=== PATIENT | female | born 1970 | race Caucasian/White ===

== ENCOUNTER 2018-03-25 11:13 | Emergency (ER) | payer OTHER ==
[~2018-03-25] VITALS: Ht 170.2 cm; Wt 155.1 kg
[~2018-03-25 11:13] MED LIST: ABAC300; ACEBUTCAFT PO; ALBIPROI INH; ALBU.083IS IH; ALBU3IS INH; ALBU90I INH; ALBU90OI; ALBU90OI INH; ALBU90OI6 INH; ALPR.25; AMOCLA875 PO; AMOX500 PO; AMOX875 PO; AZIT250 PO; Amoxicillin500 MG PO; Augmentin 875-1 EACH PO; BECL40OI INH; BELPTAB PO; BENADRYL25 MG; BENZ100A PO; CEPH500 PO; CHLO500 PO; CHOL10002; CHOL10002 PO; CHOLP PO; CIPDEXSU OT; CIPHYDOTSU AD; CIPR500 PO; CLON1 PO; CODGUAEL PO; CYCL10 PO; DIPH50 PO; DIVA500ER PO; DOXY100 PO; Diflucan100 MG PO; Duoneb 2.5-0.5 M3 ML INH; FLUC150A PO; FLUC200 PO; FLUT110OIA INH; FLUT44OIA INH; FURO20 PO; HYDACE10B PO; HYDACE5 PO; HYDCHLSU PO; HYDGUAL120 PO; HYDHOMSY PO; HYDMOR2 PO; HYDPAM25 PO; HYDPAM50 PO; IBUP800; IBUP800 PO; KETO10 PO; LEVSOD100 PO; LEVSOD125 PO; LEVSOD25 PO; LIDO2L MM; LORA2 PO; MELO7.5 PO; METF500; METPRE4DP PO; Mobic15 MG PO; NAPR500 PO; NAPR550 PO; NEOPOLHYDS OT; NYST100SU MT; Naprosyn500 MG PO; OMEP20ER PO; ONDA4; ONDA4 PO; ONDA4ODT MM; OXYACE5T PO; POTCHL10ER PO; PRED20 PO; PROACE100 PO; PROM25 PO; Prednisone20 MG PO; Pseudoephedrine30 MG PO; Pyridium200 MG PO; QUET100; QUET25; QUET25 PO; QUET300 PO; Questran4 GM; Questran4 GM PO; RXCODGUASY PO; RXHYDACE PO; RXHYDGUAS PO; RXHYDMOR2 PO; RXLORA1 PO; RXNEOPOLHC AD; RXONDA4ODT MM; RXOXYACE PO; RXPROACE PO; RXPROM25 PO; SERT50 PO; SILSUL1TC TOP; SULTRIDS PO; SUMA25 PO; TRAM50 PO; TRAZ50 PO; Ultram50 MG PO; [UNRECOGNIZED DRUG - OTHER]; [UNRECOGNIZED DRUG - OTHER]; [UNRECOGNIZED DRUG - OTHER]; [UNRECOGNIZED DRUG - REMARK]
[2018-03-25 11:54] LABS: BASOPHILS ABSOLUTE AUTO 0.04 K/mm3 (0.00-0.23); BASOPHILS PERCENT AUTO 0 % (0-2); EOSINOPHILS ABSOLUTE AUTO 0.24 K/mm3 (0.00-0.68); EOSINOPHILS PERCENT AUTO 2 % (0-6); Hematocrit 41.9 % (33.0-51.0); IMMATURE GRAN ABSOLUTE AUTO 0.03 K/mm3 (0.00-0.10); IMMATURE GRAN PERCENT AUTO 0 % (0-1); LYMPHOCYTES ABSOLUTE AUTO 2.58 K/mm3 (0.84-5.20); LYMPHOCYTES PERCENT AUTO 25 % (21-46); MONOCYTES ABSOLUTE AUTO 0.64 K/mm3 (0.16-1.47); MONOCYTES PERCENT AUTO 6 % (4-13); Mean Corpuscular HGB 31.7 pg (26.0-34.0); Mean Corpuscular HGB Conc 33.4 g/dL (31.5-36.5); Mean Corpuscular Volume 95 fL (80-100); Mean Platelet Volume 10.2 fL (9.1-12.4); NEUTROPHILS PERCENT AUTO 66 % (41-73); Platelet Count 318 K/mm3 (150-400); RDW Coefficient Variation 12.2 % (11.7-14.2); RDW Standard Deviation 42.9 fL (35.1-46.3); Red Blood Cell Count 4.41 M/mm3 (3.80-5.20); White Blood Cell Count 10.53 K/mm3 (4.00-11.30)
[2018-03-25 12:15] LABS: Alanine Aminotransfer (ALT/SGP 49 U/L (12-78); Albumin, Blood 3.3 g/dL (3.4-5.0); Albumin/Globulin Ratio 0.8 (0.8-1.8); Alk Phos 83 U/L (50-136); Anion Gap 11 mmol/L (6-16); Aspartate Aminotrans (AST/SGOT 38 U/L (12-37); Bilirubin, Total 0.2 mg/dL (0.1-1.0); Blood Urea Nitrogen 9 mg/dL (8-24); Bun/Creatinine Ratio 14.2 (12.0-20.0); CO2, Blood 26 mmol/L (21-32); Chloride, Blood 102 mmol/L (98-108); Creatinine, Blood 0.63 mg/dL (0.40-1.00); Globulin, Blood 3.9 g/dL (2.2-4.0); Glomerular Filtration Rate >60 (60-); Glucose, Blood 88 mg/dL (70-99); Sodium, Blood 139 mmol/L (136-145); Total Protein, Blood 7.2 g/dL (6.4-8.2); Troponin I <0.015 ng/mL (0.000-0.040)
[2018-03-25] MEDS ORDERED: K-Dur20 MEQ PO (14:32)
[2018-03-25] MEDS ORDERED: Lasix40 MG PO (14:32)
== END 2018-03-25 14:36 | disposition home or self-care (01) ==
LOC: ER 11:13
PROVIDERS: Emergency Medicine
DX: R07.9 Chest pain, unspecified (principal); M79.89 Other specified soft tissue disorders; J44.9 Chronic obstructive pulmonary disease, unspecified; F31.9 Bipolar disorder, unspecified; Z88.8 Allergy status to other drugs, medicaments and biological substances; Z88.1 Allergy status to other antibiotic agents; Z88.5 Allergy status to narcotic agent; Z79.82 Long term (current) use of aspirin; Z87.891 Personal history of nicotine dependence
CPT/HCPCS: 36415; 71046; 80053; 84484; 85025; 93005; 93010; 93971; 99284-25

== ENCOUNTER 2018-06-11 02:41 | Emergency (ER) | payer OTHER ==
[~2018-06-11] VITALS: Ht 170.2 cm; Wt 163.3 kg
[~2018-06-11 02:41] MED LIST changes: +K-Dur20 MEQ PO; +Lasix40 MG PO
[2018-06-11] MEDS ORDERED: GABA100 (03:24)
[2018-06-11 03:41] LABS: BASOPHILS ABSOLUTE AUTO 0.04 K/mm3 (0.00-0.23); BASOPHILS PERCENT AUTO 0 % (0-2); EOSINOPHILS ABSOLUTE AUTO 0.22 K/mm3 (0.00-0.68); EOSINOPHILS PERCENT AUTO 2 % (0-6); Hematocrit 43.3 % (33.0-51.0); Hemoglobin 14.1 g/dL (11.5-16.0); IMMATURE GRAN ABSOLUTE AUTO 0.03 K/mm3 (0.00-0.10); IMMATURE GRAN PERCENT AUTO 0 % (0-1); LYMPHOCYTES ABSOLUTE AUTO 2.46 K/mm3 (0.84-5.20); LYMPHOCYTES PERCENT AUTO 27 % (21-46); MONOCYTES ABSOLUTE AUTO 0.65 K/mm3 (0.16-1.47); MONOCYTES PERCENT AUTO 7 % (4-13); Mean Corpuscular HGB 31.4 pg (26.0-34.0); Mean Corpuscular HGB Conc 32.6 g/dL (31.5-36.5); Mean Corpuscular Volume 96 fL (80-100); Mean Platelet Volume 10.1 fL (9.1-12.4); NEUTROPHILS PERCENT AUTO 63 % (41-73); Platelet Count 259 K/mm3 (150-400); RDW Coefficient Variation 12.5 % (11.7-14.2); RDW Standard Deviation 44.5 fL (35.1-46.3); Red Blood Cell Count 4.49 M/mm3 (3.80-5.20)
[2018-06-11 04:00] LABS: Ethanol (Alcohol), Blood, Med <3 mg/dL
[2018-06-11 04:01] LABS: Alanine Aminotransfer (ALT/SGP 47 U/L (12-78); Albumin, Blood 3.4 g/dL (3.4-5.0); Albumin/Globulin Ratio 0.9 (0.8-1.8); Alk Phos 76 U/L (50-136); Anion Gap 7 mmol/L (6-16); Aspartate Aminotrans (AST/SGOT 38 U/L (12-37); Bilirubin, Total 0.2 mg/dL (0.1-1.0); Blood Urea Nitrogen 13 mg/dL (8-24); Bun/Creatinine Ratio 18.7 (12.0-20.0); CO2, Blood 30 mmol/L (21-32); Calcium, Blood 9.2 mg/dL (8.5-10.1); Chloride, Blood 102 mmol/L (98-108); Globulin, Blood 3.8 g/dL (2.2-4.0); Glomerular Filtration Rate >60 (60-); Glucose, Blood 108 mg/dL (70-99); Potassium, Blood 3.8 mmol/L (3.5-5.5); Sodium, Blood 139 mmol/L (136-145); Total Protein, Blood 7.2 g/dL (6.4-8.2)
[2018-06-11 04:39] LABS: Source, Urine Catheter
[2018-06-11 04:44] LABS: Bilirubin, Urine Neg (Neg); Blood, Urine Neg (Neg); Glucose Qualitative, Urine Neg (Neg); Ketones, Urine Neg (Neg); Leukocyte Esterase, Urine Neg (Neg); Nitrite, Urine Neg (Neg); Protein, Urine Neg (Neg); Urobilinogen, Urine NORM (Normal)
[2018-06-11 04:51] LABS: Appearance, Urine Clear (Clear); Color, Urine Yellow (P-Yellow)
[2018-06-11 04:56] LABS: U Amphetamine Screen Not Detected; U Barbituate Screen Not Detected; U Benzodiazapine Screen Not Detected; U Buprenorphine Screen Not Detected; U Cannabinoids Screen DETECTED; U Cocaine Screen Not Detected; U Methadone Screen Not Detected; U Methamphetamine Screen Not Detected; U Opiates Screen Not Detected; U Oxycodone Screen Not Detected; U Phencyclidine Screen Not Detected; U Propoxyphene Screen Not Detected
== END 2018-06-11 05:57 | disposition home or self-care (01) ==
LOC: ER 02:41
PROVIDERS: Emergency Medicine
DX: G40.909 Epilepsy, unspecified, not intractable, without status epilepticus (principal); J44.9 Chronic obstructive pulmonary disease, unspecified; Z88.8 Allergy status to other drugs, medicaments and biological substances; Z88.1 Allergy status to other antibiotic agents; Z79.899 Other long term (current) drug therapy; Z79.51 Long term (current) use of inhaled steroids; Z87.891 Personal history of nicotine dependence
CPT/HCPCS: 36415; 80053; 81003; 81025; 85025; 93005; 93010; 99284-25; G0480

== ENCOUNTER 2020-01-24 16:33 | Emergency (ER) | payer OTHER ==
[~2020-01-24] VITALS: Ht 170.2 cm; Wt 181.4 kg
[~2020-01-24 16:33] MED LIST changes: +GABA100
[2020-01-24] MEDS ORDERED: Synthroid200 MCG PO (16:55)
[2020-01-24] MEDS ORDERED: Atarax10 MG PO (16:58)
[2020-01-24 17:12] LABS: BASOPHILS ABSOLUTE AUTO 0.03 K/mm3 (0.00-0.23); BASOPHILS PERCENT AUTO 0 % (0-2); EOSINOPHILS ABSOLUTE AUTO 0.13 K/mm3 (0.00-0.68); EOSINOPHILS PERCENT AUTO 2 % (0-6); Hematocrit 44.9 % (33.0-51.0); IMMATURE GRAN ABSOLUTE AUTO 0.02 K/mm3 (0.00-0.10); IMMATURE GRAN PERCENT AUTO 0 % (0-1); LYMPHOCYTES PERCENT AUTO 27 % (21-46); MONOCYTES ABSOLUTE AUTO 0.73 K/mm3 (0.16-1.47); MONOCYTES PERCENT AUTO 9 % (4-13); Mean Corpuscular HGB 32.3 pg (26.0-34.0); Mean Corpuscular HGB Conc 33.4 g/dL (31.5-36.5); Mean Corpuscular Volume 97 fL (80-100); Mean Platelet Volume 10.8 fL (9.1-12.4); NEUTROPHILS ABSOLUTE AUTO 5.14 K/mm3 (1.96-9.15); NEUTROPHILS PERCENT AUTO 62 % (41-73); Platelet Count 222 K/mm3 (150-400); RDW Standard Deviation 46.2 fL (35.1-46.3); Red Blood Cell Count 4.64 M/mm3 (3.80-5.20); White Blood Cell Count 8.25 K/mm3 (4.00-11.30)
[2020-01-24 17:39] LABS: Alanine Aminotransfer (ALT/SGP 41 U/L (12-78); Albumin, Blood 3.4 g/dL (3.4-5.0); Albumin/Globulin Ratio 0.9 (0.8-1.8); Alk Phos 82 U/L (50-136); Anion Gap 5 mmol/L (6-16); Aspartate Aminotrans (AST/SGOT 45 U/L (12-37); Bilirubin, Total 0.6 mg/dL (0.1-1.0); Blood Urea Nitrogen 9 mg/dL (8-24); Bun/Creatinine Ratio 13.4 (12.0-20.0); CO2, Blood 30 mmol/L (21-32); Calcium, Blood 9.3 mg/dL (8.5-10.1); Chloride, Blood 103 mmol/L (98-108); Creatinine, Blood 0.67 mg/dL (0.40-1.00); Globulin, Blood 3.9 g/dL (2.2-4.0); Glomerular Filtration Rate >60 (60-); Glucose, Blood 89 mg/dL (70-99); Potassium, Blood 3.8 mmol/L (3.5-5.5); Sodium, Blood 138 mmol/L (136-145); Total Protein, Blood 7.3 g/dL (6.4-8.2)
[2020-01-24 18:41] LABS: Source, Urine Voided
[2020-01-24 18:53] LABS: Leukocyte Esterase, Urine Neg (Neg); Nitrite, Urine Neg (Neg); Protein, Urine Neg (Neg); Specific Gravity, Urine 1.005 (1.003-1.022)
[2020-01-24 18:54] LABS: Appearance, Urine Clear (Clear); Bilirubin, Urine Neg (Neg); Blood, Urine Neg (Neg); Color, Urine Yellow (P-Yellow); Glucose Qualitative, Urine Neg (Neg); Ketones, Urine Neg (Neg); Urobilinogen, Urine NORM (Normal)
[2020-01-24] MEDS ORDERED: ACETAMINOPHEN500 MG PO (19:30)
[2020-01-24] MEDS ORDERED: MINO50 PO (19:30)
[2020-01-24] MEDS ORDERED: Diflucan150 MG PO (19:50)
== END 2020-01-24 20:21 | disposition home or self-care (01) ==
LOC: ER 16:33
PROVIDERS: Emergency Medicine
DX: L03.311 Cellulitis of abdominal wall (principal); J44.9 Chronic obstructive pulmonary disease, unspecified; F31.9 Bipolar disorder, unspecified; F17.210 Nicotine dependence, cigarettes, uncomplicated; E66.01 Morbid (severe) obesity due to excess calories; Z88.8 Allergy status to other drugs, medicaments and biological substances; Z88.5 Allergy status to narcotic agent; Z79.899 Other long term (current) drug therapy; Z68.44 Body mass index [BMI] 60.0-69.9, adult
CPT/HCPCS: 36415; 71045; 74177; 80053; 81003; 83690; 85025; 96374-59; 99284-25; J2405; Q9967

== ENCOUNTER 2020-02-26 11:21 | Emergency (ER) | payer OTHER ==
[~2020-02-26] VITALS: Ht 170.2 cm; Wt 181.4 kg
[~2020-02-26 11:21] MED LIST changes: +ACETAMINOPHEN500 MG PO; +Atarax10 MG PO; +Diflucan150 MG PO; +MINO50 PO; +Synthroid200 MCG PO
[2020-02-26 12:39] LABS: BASOPHILS ABSOLUTE AUTO 0.03 K/mm3 (0.00-0.23); BASOPHILS PERCENT AUTO 0 % (0-2); EOSINOPHILS ABSOLUTE AUTO 0.15 K/mm3 (0.00-0.68); EOSINOPHILS PERCENT AUTO 2 % (0-6); Hematocrit 44.1 % (33.0-51.0); Hemoglobin 14.6 g/dL (11.5-16.0); IMMATURE GRAN ABSOLUTE AUTO 0.02 K/mm3 (0.00-0.10); IMMATURE GRAN PERCENT AUTO 0 % (0-1); LYMPHOCYTES ABSOLUTE AUTO 2.35 K/mm3 (0.84-5.20); LYMPHOCYTES PERCENT AUTO 30 % (21-46); MONOCYTES ABSOLUTE AUTO 0.67 K/mm3 (0.16-1.47); MONOCYTES PERCENT AUTO 9 % (4-13); Mean Corpuscular HGB 32.1 pg (26.0-34.0); Mean Corpuscular HGB Conc 33.1 g/dL (31.5-36.5); Mean Corpuscular Volume 97 fL (80-100); Mean Platelet Volume 10.7 fL (9.1-12.4); NEUTROPHILS ABSOLUTE AUTO 4.61 K/mm3 (1.96-9.15); NEUTROPHILS PERCENT AUTO 59 % (41-73); Platelet Count 221 K/mm3 (150-400); RDW Coefficient Variation 12.9 % (11.7-14.2); RDW Standard Deviation 45.6 fL (35.1-46.3); Red Blood Cell Count 4.55 M/mm3 (3.80-5.20); White Blood Cell Count 7.83 K/mm3 (4.00-11.30)
[2020-02-26 12:50] LABS: Anion Gap 4 mmol/L (6-16); Blood Urea Nitrogen 12 mg/dL (8-24); Bun/Creatinine Ratio 18.4 (12.0-20.0); CO2, Blood 31 mmol/L (21-32); Calcium, Blood 8.9 mg/dL (8.5-10.1); Chloride, Blood 103 mmol/L (98-108); Creatinine, Blood 0.65 mg/dL (0.40-1.00); Glomerular Filtration Rate >60 (60-); Glucose, Blood 90 mg/dL (70-99); Potassium, Blood 3.9 mmol/L (3.5-5.5); Sodium, Blood 138 mmol/L (136-145)
[2020-02-27] MEDS ORDERED: Monodox100 MG PO (09:59)
[2020-02-27] MEDS ORDERED: AMOCLA875 PO (09:59)
[2020-03-16] MEDS ORDERED: Diflucan100 MG PO (17:32)
[2020-03-16] MEDS ORDERED: Vibramycin100 MG PO (17:32)
[2020-03-16] MEDS ORDERED: AMOCLA875 PO (17:32)
== END 2020-02-26 13:33 | disposition home or self-care (01) ==
LOC: ER 11:21
PROVIDERS: Emergency Medicine
DX: L25.9 Unspecified contact dermatitis, unspecified cause (principal); Z88.8 Allergy status to other drugs, medicaments and biological substances; Z88.1 Allergy status to other antibiotic agents; Z79.899 Other long term (current) drug therapy; F17.210 Nicotine dependence, cigarettes, uncomplicated; J44.9 Chronic obstructive pulmonary disease, unspecified; F31.9 Bipolar disorder, unspecified; G47.30 Sleep apnea, unspecified; F43.10 Post-traumatic stress disorder, unspecified; E66.9 Obesity, unspecified; Z68.44 Body mass index [BMI] 60.0-69.9, adult
CPT/HCPCS: 36415; 80048; 83605; 85025; 87040; 96374; 99282-25; J0696

== ENCOUNTER 2023-06-27 16:27 | Emergency (ER) | payer OTHER ==
[~2023-06-27] VITALS: Ht 170.2 cm; Wt 158.8 kg
[~2023-06-27 16:27] MED LIST changes: +Monodox100 MG PO; +Vibramycin100 MG PO
[2023-06-27 17:20] LABS: BASOPHILS ABSOLUTE AUTO 0.04 K/mm3 (0.00-0.23); BASOPHILS PERCENT AUTO 0 % (0-2); EOSINOPHILS ABSOLUTE AUTO 0.14 K/mm3 (0.00-0.68); EOSINOPHILS PERCENT AUTO 2 % (0-6); Hematocrit 44.3 % (33.0-51.0); IMMATURE GRAN ABSOLUTE AUTO 0.04 K/mm3 (0.00-0.10); IMMATURE GRAN PERCENT AUTO 0 % (0-1); LYMPHOCYTES ABSOLUTE AUTO 2.49 K/mm3 (0.84-5.20); LYMPHOCYTES PERCENT AUTO 27 % (21-46); MONOCYTES ABSOLUTE AUTO 0.72 K/mm3 (0.16-1.47); MONOCYTES PERCENT AUTO 8 % (4-13); Mean Corpuscular HGB 33.4 pg (26.0-34.0); Mean Corpuscular HGB Conc 33.9 g/dL (31.5-36.5); Mean Corpuscular Volume 99 fL (80-100); Mean Platelet Volume 10.6 fL (9.1-12.4); NEUTROPHILS ABSOLUTE AUTO 5.93 K/mm3 (1.96-9.15); NEUTROPHILS PERCENT AUTO 63 % (41-73); Platelet Count 232 K/mm3 (150-400); RDW Coefficient Variation 12.8 % (11.7-14.2); RDW Standard Deviation 46.2 fL (35.1-46.3); Red Blood Cell Count 4.49 M/mm3 (3.80-5.20); White Blood Cell Count 9.36 K/mm3 (4.00-11.30)
[2023-06-27 17:59] LABS: Valproic Acid 77.4 ug/mL (50.0-100.0)
[2023-06-27 18:08] LABS: Albumin, Blood 3.1 g/dL (3.4-5.0); Albumin/Globulin Ratio 0.8 (0.8-1.8); Bilirubin, Total 0.3 mg/dL (0.1-1.0); Bun/Creatinine Ratio 14.8 (12.0-20.0); Creatinine, Blood 0.81 mg/dL (0.40-1.00); Globulin, Blood 3.9 g/dL (2.2-4.0); Potassium, Blood 4.2 mmol/L (3.5-5.5)
[2023-06-27 18:46] VITALS: BP 118/100
== END 2023-06-27 19:12 | disposition home or self-care (01) ==
LOC: ER 16:27
PROVIDERS: Emergency Medicine
DX: R56.9 Unspecified convulsions (principal); R55 Syncope and collapse; E03.9 Hypothyroidism, unspecified; I48.91 Unspecified atrial fibrillation; E66.2 Morbid (severe) obesity with alveolar hypoventilation; J44.9 Chronic obstructive pulmonary disease, unspecified; F17.210 Nicotine dependence, cigarettes, uncomplicated; Z88.5 Allergy status to narcotic agent; Z68.43 Body mass index [BMI] 50.0-59.9, adult; Z88.8 Allergy status to other drugs, medicaments and biological substances; Z88.1 Allergy status to other antibiotic agents; Z79.890 Hormone replacement therapy; Z79.899 Other long term (current) drug therapy
CPT/HCPCS: 80053; 80164; 84443; 84484; 85025; 93005; 93010; 99284-25

== ENCOUNTER → 2023-08-17 | Outpatient (CLI) | payer OTHER | LOC: LAB SHORT 11:41 → LAB 11:41 | DX: R73.9 Hyperglycemia, unspecified (principal); E03.9 Hypothyroidism, unspecified | CPT/HCPCS: 83036; 84443 ==

== ENCOUNTER → 2024-01-25 | Outpatient (CLI) | payer OTHER ==
[~2024-01-25] MED LIST changes: +ATOR40TA PO; +NYSTRIT TOP; +XARELTO20 MG PO
[2024-01-25 19:54] LABS: BASOPHILS ABSOLUTE AUTO 0.03 K/mm3 (0.00-0.23); BASOPHILS PERCENT AUTO 0 % (0-2); EOSINOPHILS ABSOLUTE AUTO 0.08 K/mm3 (0.00-0.68); EOSINOPHILS PERCENT AUTO 1 % (0-6); Hematocrit 42.3 % (33.0-51.0); Hemoglobin 13.7 g/dL (11.5-16.0); IMMATURE GRAN ABSOLUTE AUTO 0.03 K/mm3 (0.00-0.10); IMMATURE GRAN PERCENT AUTO 0 % (0-1); LYMPHOCYTES ABSOLUTE AUTO 1.67 K/mm3 (0.84-5.20); LYMPHOCYTES PERCENT AUTO 22 % (21-46); MONOCYTES ABSOLUTE AUTO 0.55 K/mm3 (0.16-1.47); MONOCYTES PERCENT AUTO 7 % (4-13); Mean Corpuscular HGB 33.3 pg (26.0-34.0); Mean Corpuscular HGB Conc 32.4 g/dL (31.5-36.5); Mean Corpuscular Volume 103 fL (80-100); NEUTROPHILS ABSOLUTE AUTO 5.24 K/mm3 (1.96-9.15); NEUTROPHILS PERCENT AUTO 69 % (41-73); Platelet Count 245 K/mm3 (150-400); RDW Coefficient Variation 12.4 % (11.7-14.2); RDW Standard Deviation 46.8 fL (35.1-46.3); Red Blood Cell Count 4.11 M/mm3 (3.80-5.20)
[2024-01-25 20:02] LABS: Albumin, Blood 3.3 g/dL (3.4-5.0); Albumin/Globulin Ratio 0.8 (0.8-1.8); Bilirubin, Total 0.5 mg/dL (0.1-1.0); Bun/Creatinine Ratio 24.4 (12.0-20.0); C-REACTIVE PROTEIN, EXT RANGE 1.47 mg/dL (0.000-0.300); Calcium, Blood 9.4 mg/dL (8.5-10.1); Creatinine, Blood 0.66 mg/dL (0.40-1.00); Globulin, Blood 4.4 g/dL (2.2-4.0); Potassium, Blood 3.9 mmol/L (3.5-5.5); Total Protein, Blood 7.7 g/dL (6.4-8.2)
[2024-01-27 19:41] LABS: HEPATITIS C AB CIA INTERP Negative (Negative); HEPATITIS C ANTIBODY CIA INDEX <0.02 IV
[2024-01-29 11:53] LABS: IMMUNOGLOBULIN A 453 mg/dL (68-408); IMMUNOGLOBULIN G 1273 mg/dL (768-1632); IMMUNOGLOBULIN M 77 mg/dL (35-263)
[2024-01-29 21:46] LABS: MYELOPEROXIDASE (MPO) AB,IGG 0 AU/mL (0-19); SERINE PROTEINASE 3 PR3 AB,IGG 17 AU/mL (0-19)
[2024-01-30 17:32] LABS: ALBUMIN 3.61 g/dL (3.75-5.01); ALPHA 1 GLOBULIN 0.31 g/dL (0.19-0.46); ALPHA 2 GLOBULIN 0.69 g/dL (0.48-1.05); BETA GLOBULIN 1.12 g/dL (0.48-1.10); GAMMA 1.27 g/dL (0.62-1.51)
[2024-01-31 05:55] LABS: ANA PATTERN Speckled; ANTINUCLEAR AB (ANA),HEP-2,IGG Detected (<1:80)
== END | disposition home or self-care (01) ==
LOC: LAB SHORT 18:55 → LAB 18:55
PROVIDERS: Student in an Organized Health Care Education/Training Program
DX: R23.3 Spontaneous ecchymoses (principal)
CPT/HCPCS: 80053; 82784; 83516; 84155; 84165; 85025; 85651; 86039; 86140; 86803

== ENCOUNTER → 2024-02-24 | Outpatient (CLI) | payer OTHER | LOC: LAB SHORT 18:33 → LAB 18:33 | DX: R30.0 Dysuria (principal) | CPT/HCPCS: 87077; 87086; 87186 ==

== ENCOUNTER → 2024-11-27 | Outpatient (CLI) | payer OTHER ==
[2024-11-27 16:31] LABS: BASOPHILS ABSOLUTE AUTO 0.02 K/mm3 (0.00-0.23); BASOPHILS PERCENT AUTO 0 % (0-2); EOSINOPHILS ABSOLUTE AUTO 0.06 K/mm3 (0.00-0.68); EOSINOPHILS PERCENT AUTO 1 % (0-6); Hematocrit 40.7 % (33.0-51.0); Hemoglobin 13.3 g/dL (11.5-16.0); IMMATURE GRAN ABSOLUTE AUTO 0.02 K/mm3 (0.00-0.10); IMMATURE GRAN PERCENT AUTO 0 % (0-1); LYMPHOCYTES ABSOLUTE AUTO 1.65 K/mm3 (0.84-5.20); LYMPHOCYTES PERCENT AUTO 24 % (21-46); MONOCYTES ABSOLUTE AUTO 0.38 K/mm3 (0.16-1.47); MONOCYTES PERCENT AUTO 6 % (4-13); Mean Corpuscular HGB 33.7 pg (26.0-34.0); Mean Corpuscular HGB Conc 32.7 g/dL (31.5-36.5); Mean Corpuscular Volume 103 fL (80-100); Mean Platelet Volume 11.3 fL (9.1-12.4); NEUTROPHILS ABSOLUTE AUTO 4.67 K/mm3 (1.96-9.15); NEUTROPHILS PERCENT AUTO 69 % (41-73); Platelet Count 232 K/mm3 (150-400); RDW Coefficient Variation 12.2 % (11.7-14.2); RDW Standard Deviation 46.2 fL (35.1-46.3); Red Blood Cell Count 3.95 M/mm3 (3.80-5.20)
[2024-11-27 17:17] LABS: Albumin, Blood 3.4 g/dL (3.4-5.0); Albumin/Globulin Ratio 0.8 (0.8-1.8); Bilirubin, Total 0.5 mg/dL (0.1-1.0); Bun/Creatinine Ratio 18.8 (12.0-20.0); Calcium, Blood 9.1 mg/dL (8.5-10.1); Creatinine, Blood 0.91 mg/dL (0.40-1.00); Total Protein, Blood 7.4 g/dL (6.4-8.2)
== END ==
LOC: LAB 10:35 → LAB SHORT 10:35
PROVIDERS: Student in an Organized Health Care Education/Training Program
DX: E03.9 Hypothyroidism, unspecified (principal)
CPT/HCPCS: 80053; 84443; 85025

== ENCOUNTER 2024-12-16 19:14 | Inpatient (IN) | payer OTHER ==
[~2024-12-16] VITALS: Ht 170.2 cm; Wt 206.5 kg
[~2024-12-16 19:14] MED LIST changes: -GABA100; +GABA100 PO; -Synthroid200 MCG PO
[2024-12-16 19:50] LABS: BASOPHILS ABSOLUTE AUTO 0.01 K/mm3 (0.00-0.23); BASOPHILS PERCENT AUTO 0 % (0-2); EOSINOPHILS ABSOLUTE AUTO 0.02 K/mm3 (0.00-0.68); EOSINOPHILS PERCENT AUTO 0 % (0-6); Hematocrit 40.7 % (33.0-51.0); Hemoglobin 13.3 g/dL (11.5-16.0); IMMATURE GRAN ABSOLUTE AUTO 0.02 K/mm3 (0.00-0.10); IMMATURE GRAN PERCENT AUTO 0 % (0-1); LYMPHOCYTES ABSOLUTE AUTO 0.92 K/mm3 (0.84-5.20); LYMPHOCYTES PERCENT AUTO 11 % (21-46); MONOCYTES ABSOLUTE AUTO 0.38 K/mm3 (0.16-1.47); MONOCYTES PERCENT AUTO 5 % (4-13); Mean Corpuscular HGB 33.8 pg (26.0-34.0); Mean Corpuscular HGB Conc 32.7 g/dL (31.5-36.5); Mean Corpuscular Volume 103 fL (80-100); Mean Platelet Volume 11.3 fL (9.1-12.4); NEUTROPHILS ABSOLUTE AUTO 7.15 K/mm3 (1.96-9.15); NEUTROPHILS PERCENT AUTO 84 % (41-73); Platelet Count 231 K/mm3 (150-400); RDW Coefficient Variation 12.6 % (11.7-14.2); RDW Standard Deviation 47.8 fL (35.1-46.3); Red Blood Cell Count 3.94 M/mm3 (3.80-5.20)
[2024-12-16] MEDS ORDERED: Acetaminophen 500 MG Tab PO ONE (20:15)
[2024-12-16] MEDS ORDERED: NS 1,000 ML IV SCH ×2 (20:15→20:40)
[2024-12-16] MEDS ORDERED: Clindamycin 600mg in D5W 50 ML IV ONE (20:20)
[2024-12-16] MEDS ORDERED: Diltiazem HCl 5 MG / ML 5ML Vial IV ONE (20:20)
[2024-12-16] MEDS ORDERED: Ondansetron HCl 2 MG / ML 2ML Vial IV ONE ×2 (20:20→23:05)
[2024-12-16 20:36] LABS: Albumin, Blood 3.1 g/dL (3.4-5.0); Albumin/Globulin Ratio 0.7 (0.8-1.8); Bilirubin, Total 0.6 mg/dL (0.1-1.0); Bun/Creatinine Ratio 15.7 (12.0-20.0); Calcium, Blood 9.2 mg/dL (8.5-10.1); Creatinine, Blood 1.02 mg/dL (0.40-1.00); Globulin, Blood 4.2 g/dL (2.2-4.0); Magnesium, Blood 1.6 mg/dL (1.6-2.4); Phosphorus, Blood 2.4 mg/dL (2.5-4.9); Potassium, Blood 4.1 mmol/L (3.5-5.5); Total Protein, Blood 7.3 g/dL (6.4-8.2)
[2024-12-16] MEDS ORDERED: dilTIAZem HCL 125 MG in Dextrose 5% 100 ML IV SCH (22:10)
[2024-12-17] VITALS (8 sets, daily range): BP systolic 84–114; BP diastolic 52–74
[2024-12-17 01:08] LABS: Source, Urine Clean Catch
[2024-12-17 01:11] LABS: Bilirubin, Urine Neg (Neg); Blood, Urine 5+ (Neg); Glucose Qualitative, Urine Neg (Neg); Ketones, Urine 1+ (Neg); Leukocyte Esterase, Urine 1+ (Neg); Nitrite, Urine Pos (Neg); Protein, Urine 1+ (Neg); Specific Gravity, Urine 1.015 (1.003-1.022); Urobilinogen, Urine NORM (Normal)
[2024-12-17 01:14] LABS: Appearance, Urine Hazy (Clear); Color, Urine Yellow (P-Yellow)
[2024-12-17 01:18] LABS: Bacteria Many /hpf; Red Blood Cells, Urine 0-2 /hpf (0-2); Squamous Epithelial Cells Mod /hpf (Few)
[2024-12-17] MEDS ORDERED: Piperacillin/Tazobactam Sod 4.5 GM in NS 100 ML IV ONE (03:05)
[2024-12-17] MEDS ORDERED: Vancomycin HCL 2,500 MG in NS 500 ML IV ONE (05:20)
[2024-12-17] MEDS ORDERED: Ketorolac Tromethamine 30mg Vial IV ONE (08:00)
[2024-12-17] MEDS ORDERED: HYDROmorphone HCl/Pf 1MG SYR IV ONE (08:00)
[2024-12-17] MEDS ORDERED: Bisoprolol Fuma10 MG PO (11:10)
[2024-12-17] MEDS ORDERED: PRAZ5 PO (11:11)
[2024-12-17] MEDS ORDERED: CHOLESTYRAMI239.4 G1 PO (11:16)
--- NOTE | 2024-12-17 11:35 | NUR ---
PT ADMITTED TO U 02, REPORT RECIEVED FROM GÓMEZ TSAI PT TRANSFERED FROM BED TO U02'S BAIRATRIC BED 2P SBA. SHE IS WAS ON 4L NC W/ SP02 >95%. SHE WAS TITRAITED TO 2L NC AND SP02 >93%. ON TELE SHE IS AFIB 90'S-100'S AND ON A CARDIZEM GTT. BP SOFT BUT STABLE. THIS RN CALLED DR. LOPES AND INQUIRED ABOUT SWITCHING TO ORAL MEDICATIONS D/T IMPROVED HR. HE STATED HE WILL PUT IN ORDERS. PROVIDER WAS NOTIFIED OF REDNESS TO R. OUTER PANNUS. NO OTHER SKIN MARKINGS NOTED, SKIN CHECK WITH TERRY TSAI. MEDICATIONS UPDATED AND PROVIDER MADE AWARE. PT'S IS AT BEDSIDE AND UPDATED ON CARE. PT REMIANS NPO AT THSI TIME WHILE WE AWAIT ULTRASOUND RESULTS. DR. ELIAS ON THE PT'S CASE. BED IN LOW. CALL [facility] IN REACH. BREAK RN AT PT'S BEDSIDE WORKING ON HX.
[2024-12-17] MEDS ORDERED: Norco 5-325 Ta1 EACH PO (12:32)
[2024-12-17] MEDS ORDERED: HYDROcodone 5-APAP 325 TAB PO PRN (12:55)
[2024-12-17] MEDS ORDERED: HYDROmorphone HCl/Pf 1MG SYR IV PRN (12:55)
[2024-12-17] MEDS ORDERED: Ketorolac Tromethamine 30mg Vial IV PRN (12:55)
[2024-12-17] MEDS ORDERED: dilTIAZem HCL 30 MG TAB PO ONE (13:00)
[2024-12-17] MEDS ORDERED: Lactated Ringer's 1,000 ML IV ONE ×2 (13:00→16:20)
[2024-12-17] MEDS ORDERED: Diclofenac Sodium 100 GM TUBE TOP PRN (13:55)
[2024-12-17] MEDS ORDERED: Cyclobenzaprine HCl 10 MG Tab PO PRN (14:40)
[2024-12-17] MEDS ORDERED: Acetaminophen 500 MG Tab PO PRN (14:45)
[2024-12-17] MEDS ORDERED: SUMAtriptan succinate 50 MG Tab PO PRN (14:45)
[2024-12-17] MEDS ORDERED: Albuterol HFA200 ACT/6.7 GM INH INH PRN (14:55)
[2024-12-17] MEDS ORDERED: LevoFLOXacin 750 MG/D5W 150ML 150 ML IV SCH (16:00)
--- NOTE | 2024-12-17 16:25 | NUR ---
THIS RN CALLED DR. LOPES ABOUT SOFT BLOOD PRESSURE AND PT COMPLAINING OF DIZZINESS/LIGHT HEADEDNESS. DR. LOPES ORDERED 1000CC LR BOLUS. SEE NOTES FOR ANY UPDATES.
--- NOTE | 2024-12-17 17:24 | NUR ---
END OF SHIFT SUMMARY THE PT IS A&OX4, 2P STAND BY ASSIST (SHORT DISTANCES LIKE [facility]), AND MAKES HER NEEDS KNOWN. ON TELE SHE IS AFIB 90'S-100'S. HER CARDIZEM GTT HAS BEEN TITRAITED OFF AND SHE HAS BEEN STARTED ON PO CARDIZEM. THE PT'S WILL BE BRINGING IN HER BISPROLOL D/T THE HOSPITAL NOT HAVING THAT MEDICATION IN STOCK. HER BLOOD PRESSURE HAS BEEN SOFT, BUT CONTINUED TO DROP. SEE PREVIOUS NOTE. LR CURRENTLY INFUSING, BP WITH SOME IMPROVEMENT. HER RIGHT OUTER PANNUS IS FLOATED ON PILLOWS PER DR. ELIAS AND IT WAS OUTLINED PER DR. LOPES. PHOTOS ARE IN THE CHART. FAMILY IS AT THE BEDSIDE AND UPDATED ON CARE.
[2024-12-17] MEDS ORDERED: Vancomycin HCL 1,750 MG in NS 500 ML IV SCH (18:00)
[2024-12-17] MEDS ORDERED: Gabapentin 300 MG Cap PO SCH (18:00)
--- NOTE | 2024-12-17 18:27 | NUR ---
PT IS HAVING DYSURIA. BLADDER/RENAL US COMPLETED D/T PT SIZE AND UNABLE TO ASSES W/ UNIT BLADDER ULTRASOUND. NO DISTENTION NOTED ON ULTRASOUND. PER DR. LOPES IF THE PT DOES NOT URINATE BY 0000 SHE CAN BE STRAIGHT CATH'D. SEE NOTES FOR ANY UPDATES.
[2024-12-17] MEDS ORDERED: Prazosin HCL 5 MG Cap PO SCH (21:00)
[2024-12-17] MEDS ORDERED: Divalproex Sodium 500 MG TABCR PO SCH (21:00)
[2024-12-17] MEDS ORDERED: ClonazePAM 1 MG Tab PO SCH (21:00)
[2024-12-17] MEDS ORDERED: Lactobacil 2-S.Thermo-Bifido 1 1 Cap PO SCH ×2 (21:00)
[2024-12-18] VITALS (11 sets, daily range): BP systolic 90–113; BP diastolic 52–78
[2024-12-18 04:16] LABS: BASOPHILS ABSOLUTE AUTO 0.01 K/mm3 (0.00-0.23); BASOPHILS PERCENT AUTO 0 % (0-2); EOSINOPHILS ABSOLUTE AUTO 0.04 K/mm3 (0.00-0.68); EOSINOPHILS PERCENT AUTO 0 % (0-6); Hematocrit 31.4 % (33.0-51.0); IMMATURE GRAN ABSOLUTE AUTO 0.07 K/mm3 (0.00-0.10); IMMATURE GRAN PERCENT AUTO 1 % (0-1); LYMPHOCYTES ABSOLUTE AUTO 1.17 K/mm3 (0.84-5.20); LYMPHOCYTES PERCENT AUTO 11 % (21-46); MONOCYTES ABSOLUTE AUTO 0.71 K/mm3 (0.16-1.47); MONOCYTES PERCENT AUTO 7 % (4-13); Mean Corpuscular HGB 33.6 pg (26.0-34.0); Mean Corpuscular HGB Conc 31.8 g/dL (31.5-36.5); Mean Corpuscular Volume 105 fL (80-100); NEUTROPHILS ABSOLUTE AUTO 8.46 K/mm3 (1.96-9.15); NEUTROPHILS PERCENT AUTO 81 % (41-73); Platelet Count 172 K/mm3 (150-400); RDW Coefficient Variation 12.8 % (11.7-14.2); RDW Standard Deviation 49.7 fL (35.1-46.3); Red Blood Cell Count 2.98 M/mm3 (3.80-5.20); White Blood Cell Count 10.46 K/mm3 (4.00-11.30)
[2024-12-18 04:48] LABS: Albumin, Blood 2.4 g/dL (3.4-5.0); Anion Gap 9 mmol/L (3-11); Blood Urea Nitrogen 26 mg/dL (8-24); Bun/Creatinine Ratio 15.9 (12.0-20.0); CO2, Blood 27 mmol/L (21-32); Calcium, Blood 8.3 mg/dL (8.5-10.1); Chloride, Blood 105 mmol/L (98-108); Creatinine, Blood 1.64 mg/dL (0.40-1.00); Glomerular Filtration Rate 37 (60-); Glucose, Blood 115 mg/dL (70-99); Phosphorus, Blood 3.2 mg/dL (2.5-4.9); Potassium, Blood 3.6 mmol/L (3.5-5.5); Sodium, Blood 137 mmol/L (136-145)
[2024-12-18] MEDS ORDERED: Levothyroxine Sodium 0.1 MG Tab PO SCH (06:00)
[2024-12-18] MEDS ORDERED: NS 1,000 ML IV SCH (06:15)
[2024-12-18] MEDS ORDERED: Atorvastatin 40 MG Tab PO SCH (09:00)
[2024-12-18] MEDS ORDERED: Cholestyramine/Aspartame 4 GM Packet PO SCH (09:00)
[2024-12-18] MEDS ORDERED: Metoprolol Succinate 50 MG TABCR PO SCH (09:00)
[2024-12-18] MEDS ORDERED: Misc. Tablet PO SCH (09:00)
[2024-12-18] MEDS ORDERED: Rivaroxaban 10 MG Tab PO SCH (09:00)
[2024-12-18] MEDS ORDERED: Lactated Ringer's 1,000 ML IV SCH (09:20)
[2024-12-18 15:19] LABS: Bun/Creatinine Ratio 15.6 (12.0-20.0); Calcium, Blood 8.2 mg/dL (8.5-10.1); Creatinine, Blood 1.6 mg/dL (0.40-1.00); Potassium, Blood 3.8 mmol/L (3.5-5.5)
[2024-12-18 17:54] LABS: Vancomycin, Trough 25.4 ug/mL (5.0-10.0)
--- NOTE | 2024-12-18 18:04 | NUR ---
SHIFT SUMMARY: A/O X4, ANXIOUS AT BASELINE, HX OF PTSD. MD LOPES CONSULTED PT AND HER ABOUT CURRENT MEDICAL PLAN AND DX OF SEPSIS, PNU, AND UTI, BOTH ENDORSED UNDERSTANDING. AFIB, HR 90'S, HR INCREASES WITH ACTIVITY BUT DOES NOT SUSTAIN, BP'S SOFT WITH MAP >65, LUNG SOUNDS CTA, BLE EDEMA +3 PITTING, RIGHT FOOT WAS RED AT START OF SHIFT, PT REPORTS THAT IS HER BASELINE, BY THE END OF SHIFT THE PALLOR IMPROVED TO BE CONSISTENT WITH THE REST OF HER SKIN, BOARDER OF PANIS MARKED AND HAS RECEDED OVER COURSE OF SHIFT. BERI EQUIPMENT IN PLACE, BUT DUE TO BODY HABITUS PT ACQUIRED BILATERAL FLANK SKIN TEARS, SEE PICTURES IN CHART. PT REMAINS 1-2 PERSON SBA, AMBULATES TO BERI BEDSIDE COMMODE, URINE OUTPUT SLOWLY IMPROVING, 750ML OUTPUT THIS SHIFT, FLUIDS INFUSING PER ORDER. USES CALL LIGHT APPROPRIATELY.
[2024-12-19] VITALS (7 sets, daily range): BP systolic 93–115; BP diastolic 59–70
[2024-12-19 05:52] LABS: BASOPHILS ABSOLUTE AUTO 0.02 K/mm3 (0.00-0.23); BASOPHILS PERCENT AUTO 0 % (0-2); EOSINOPHILS ABSOLUTE AUTO 0.12 K/mm3 (0.00-0.68); EOSINOPHILS PERCENT AUTO 1 % (0-6); Hematocrit 31.9 % (33.0-51.0); Hemoglobin 9.8 g/dL (11.5-16.0); IMMATURE GRAN ABSOLUTE AUTO 0.03 K/mm3 (0.00-0.10); IMMATURE GRAN PERCENT AUTO 0 % (0-1); LYMPHOCYTES ABSOLUTE AUTO 1.85 K/mm3 (0.84-5.20); LYMPHOCYTES PERCENT AUTO 20 % (21-46); MONOCYTES ABSOLUTE AUTO 0.71 K/mm3 (0.16-1.47); MONOCYTES PERCENT AUTO 8 % (4-13); Mean Corpuscular HGB 33.6 pg (26.0-34.0); Mean Corpuscular HGB Conc 30.7 g/dL (31.5-36.5); Mean Corpuscular Volume 109 fL (80-100); NEUTROPHILS ABSOLUTE AUTO 6.56 K/mm3 (1.96-9.15); NEUTROPHILS PERCENT AUTO 71 % (41-73); Platelet Count 177 K/mm3 (150-400); RDW Coefficient Variation 12.9 % (11.7-14.2); RDW Standard Deviation 51.8 fL (35.1-46.3); Red Blood Cell Count 2.92 M/mm3 (3.80-5.20); White Blood Cell Count 9.29 K/mm3 (4.00-11.30)
[2024-12-19 06:09] LABS: Anion Gap 10 mmol/L (3-11); Blood Urea Nitrogen 21 mg/dL (8-24); CO2, Blood 26 mmol/L (21-32); Calcium, Blood 8.5 mg/dL (8.5-10.1); Chloride, Blood 105 mmol/L (98-108); Creatinine, Blood 1.62 mg/dL (0.40-1.00); Glomerular Filtration Rate 38 (60-); Glucose, Blood 83 mg/dL (70-99); Potassium, Blood 3.5 mmol/L (3.5-5.5); Sodium, Blood 137 mmol/L (136-145); Vancomycin, Random 17.9 ug/mL
[2024-12-19] MEDS ORDERED: Vancomycin HCL 2,000 MG in NS 500 ML IV ONE (07:30)
--- NOTE | 2024-12-19 12:31 | NUR ---
PT PROVIDED BARIATRIC RECLINER. PT HESITANT TO SIT IN RECLINER. PT INFORMED THAT IT WOULD BE BENEFICIAL TO HER TO SIT IN RELCINER OCCASSIONALLY FOR PREVENTION OF BED SORES, PNA, AND HER PAIN. PT AGREEABLE AT THIS TIME.
--- NOTE | 2024-12-19 16:51 | NUR ---
THIS RN TO PT ROOM FOR EVENING VITALS. PT SLEEPING WITH HER HOME CPAP MACHINE ON. PT SPO2 PROBE FLASHING AND NOT GETTING A GOOD READ ON SATS. NEW SPO2 FINGER PROBE APPLIED TO PT AND SATS NOTED TO BE IN MID 70'S. THIS RN ASSESSED TUBING AND VERIFIED THAT MACHINE WAS ON. RESP THERAPIST CONTACTED. RT TO PT 'S ROOM AND STATED THAT PT NEEDS TO HAVE A BLEED IN FOR O2. RT RETREIVED SETUP FOR BLEED IN. PT AWOKEN AND REMOVED MASK. SATS INCRESSED TO HIGH 80'S ON RA. NOTIFIED HE WAS IN DICTATION AREA.
--- NOTE | 2024-12-19 17:09 | NUR ---
SHIFT SUMMARY PT A/OX4. PT COOPERATIVE OF CARE AND IS ABLE TO EXPRESS NEEDS. PT CALLS APPROPIATE. PT ENCOURAGED TO BE UP TO RECLINER, PT COOPERATIVE THIS SHIFT. PT BP'S CONTINUE TO BE SOFT BUT STABLE WITH MAPS IN THE 70'S. PT SATS STABLE WHEN AWAKE AND ON 2L NC. PT SATS DROPPED TO 70'S WHILE ON HER OWN CPAP, RT CONTACTED AND 4L BLEED IN APPLIED, SATS IN THE 90'S. OTHER VSS THROUGHOUT SHIFT. NO REPORT OF CHEST PAIN/PRESSURE THROUGHOUT SHIFT. PT REPORTED DYSPNEA WHEN UP IN ROOM. PT AB[place] [facility] [place] [facility]. PT/OT ORDERED FOR PT THIS SHIFT.
[2024-12-20] VITALS (7 sets, daily range): BP systolic 92–124; BP diastolic 52–90
[2024-12-20 04:47] LABS: Vancomycin, Random 22.5 ug/mL
[2024-12-20] MEDS ORDERED: Vancomycin HCL 1,500 MG in NS 250 ML IV ONE ×2 (05:20→09:00)
--- NOTE | 2024-12-20 06:16 | NUR ---
SHIFT SUMMARY PT A&O X4, ANXIOUS AT TIMES, COOPERATIVE TO CARE. PT MEDICAL STATUS WITH NO TELE. SBP SOFT AT START OF SHIFT IN THE 90'S. LAST SBP IN THE 110'S. HR IN THE 80'S. SHE DENIES ANY CP/PRESSURE, NUMB/TINGLING. O2 >90% ON 4L VIA NC. HOME CPAP AT BEDSIDE, PT USED T/O NIGHT. PT UP TO BSC A FEW TIMES T/O SHIFT, PT VERY WORE OUT AND WEAK WITH TRANSFERS. SHE REPORTS PAIN IN JOINTS, MEDICATED PER EMAR. PT DID HAVE A TEMP OF 99.4 AT ONE POINT, TYLENOL GIVEN AND ICE PACK PROVIDED TO PT, RECHECKED AND TEMP DOWN TO 98.4. PT HAS REDNESS IN HER SKIN FOLDS. PT ALSO HAS A MASS ON HER RIGHT ABD. MASS HAS DRAINAGE FROM AN OPEN WOUND OF THE MASS. MASS ELEVATED ON PILLOW PER SURGERY REC. PT HAS FLUIDS INFUSING PER EMAR. PT RESTING IN BED AT THIS TIME. CALL LIGHT IN REACH. WILL MONITOR PT AND REPORT TO ONCOMING RN.
[2024-12-20 09:57] LABS: BASOPHILS ABSOLUTE AUTO 0.02 K/mm3 (0.00-0.23); BASOPHILS PERCENT AUTO 0 % (0-2); EOSINOPHILS ABSOLUTE AUTO 0.12 K/mm3 (0.00-0.68); EOSINOPHILS PERCENT AUTO 2 % (0-6); Hematocrit 29.4 % (33.0-51.0); Hemoglobin 9.2 g/dL (11.5-16.0); IMMATURE GRAN ABSOLUTE AUTO 0.06 K/mm3 (0.00-0.10); IMMATURE GRAN PERCENT AUTO 1 % (0-1); LYMPHOCYTES ABSOLUTE AUTO 1.38 K/mm3 (0.84-5.20); LYMPHOCYTES PERCENT AUTO 18 % (21-46); MONOCYTES ABSOLUTE AUTO 0.67 K/mm3 (0.16-1.47); MONOCYTES PERCENT AUTO 9 % (4-13); Mean Corpuscular HGB 33.3 pg (26.0-34.0); Mean Corpuscular HGB Conc 31.3 g/dL (31.5-36.5); Mean Corpuscular Volume 107 fL (80-100); Mean Platelet Volume 10.7 fL (9.1-12.4); NEUTROPHILS ABSOLUTE AUTO 5.49 K/mm3 (1.96-9.15); NEUTROPHILS PERCENT AUTO 71 % (41-73); Platelet Count 196 K/mm3 (150-400); RDW Coefficient Variation 12.6 % (11.7-14.2); RDW Standard Deviation 48.9 fL (35.1-46.3); Red Blood Cell Count 2.76 M/mm3 (3.80-5.20); White Blood Cell Count 7.74 K/mm3 (4.00-11.30)
[2024-12-20 11:05] LABS: Albumin, Blood 2.3 g/dL (3.4-5.0); Anion Gap 11 mmol/L (3-11); CO2, Blood 26 mmol/L (21-32); Calcium, Blood 8.2 mg/dL (8.5-10.1); Chloride, Blood 106 mmol/L (98-108); Creatinine, Blood 1.85 mg/dL (0.40-1.00); Glomerular Filtration Rate 32 (60-); Phosphorus, Blood 4.2 mg/dL (2.5-4.9); Potassium, Blood 4.1 mmol/L (3.5-5.5); Sodium, Blood 139 mmol/L (136-145)
[2024-12-20 11:23] LABS: Bun/Creatinine Ratio Unable to Calculate (12.0-20.0)
--- NOTE | 2024-12-20 12:26 | NUR ---
STUDENT RN CHARTING REVIEW. THIS RN OVERSAW, REVIEWED, AND AGREES WITH STUDENT RN'S ASSESSMENT AND CHARTING.
--- NOTE | 2024-12-20 13:11 | NUR ---
TRNASFER UPDATE REPORT GIVEN BY STUDENT RN AND THIS RN AT 1251 TO [facility] FLOOR RN. PT TRANSFERED AT 1305. PT PERSONAL BELONGINGS, MEDS, HOME CPAP, AND CHART TRANSFERED WITH PT. PT CONTACTED BY THIS RN AT 1310 AND NOTIFIED OF TRANSFER. RENTAL BARIATRIC COMMODE AND RENTAL BARIATRIC BED DELIVERED TO [facility] 364 ROOM AT TIME OF TRANSFER.
[2024-12-20] MEDS ORDERED: MethylPREDNISolone Sod Succ 125 MG Vial IV SCH (18:00)
[2024-12-21 03:20] VITALS: BP 115/71
[2024-12-21 05:32] LABS: BASOPHILS ABSOLUTE AUTO 0.02 K/mm3 (0.00-0.23); BASOPHILS PERCENT AUTO 0 % (0-2); EOSINOPHILS ABSOLUTE AUTO 0.03 K/mm3 (0.00-0.68); EOSINOPHILS PERCENT AUTO 0 % (0-6); Hematocrit 33.5 % (33.0-51.0); Hemoglobin 10.4 g/dL (11.5-16.0); IMMATURE GRAN ABSOLUTE AUTO 0.06 K/mm3 (0.00-0.10); IMMATURE GRAN PERCENT AUTO 1 % (0-1); LYMPHOCYTES ABSOLUTE AUTO 0.79 K/mm3 (0.84-5.20); LYMPHOCYTES PERCENT AUTO 10 % (21-46); MONOCYTES PERCENT AUTO 4 % (4-13); Mean Corpuscular HGB 33.8 pg (26.0-34.0); Mean Corpuscular Volume 109 fL (80-100); Mean Platelet Volume 10.7 fL (9.1-12.4); NEUTROPHILS ABSOLUTE AUTO 6.49 K/mm3 (1.96-9.15); NEUTROPHILS PERCENT AUTO 84 % (41-73); Platelet Count 202 K/mm3 (150-400); RDW Coefficient Variation 12.3 % (11.7-14.2); RDW Standard Deviation 49.3 fL (35.1-46.3); Red Blood Cell Count 3.08 M/mm3 (3.80-5.20); White Blood Cell Count 7.69 K/mm3 (4.00-11.30)
[2024-12-21 06:07] LABS: Alanine Aminotransfer (ALT/SGP 17 U/L (12-78); Albumin, Blood 2.7 g/dL (3.4-5.0); Albumin/Globulin Ratio 0.6 (0.8-1.8); Alk Phos 82 U/L (50-136); Anion Gap 9 mmol/L (3-11); Aspartate Aminotrans (AST/SGOT 13 U/L (12-37); Bilirubin, Total 0.6 mg/dL (0.1-1.0); Blood Urea Nitrogen 18 mg/dL (8-24); Bun/Creatinine Ratio 9.4 (12.0-20.0); CO2, Blood 28 mmol/L (21-32); Calcium, Blood 8.9 mg/dL (8.5-10.1); Chloride, Blood 104 mmol/L (98-108); Creatinine, Blood 1.91 mg/dL (0.40-1.00); Globulin, Blood 4.5 g/dL (2.2-4.0); Glomerular Filtration Rate 31 (60-); Glucose, Blood 116 mg/dL (70-99); Potassium, Blood 4.4 mmol/L (3.5-5.5); Sodium, Blood 137 mmol/L (136-145); Total Protein, Blood 7.2 g/dL (6.4-8.2); Vancomycin, Random 19.8 ug/mL
[2024-12-21 07:39] VITALS: BP 111/70
[2024-12-21] MEDS ORDERED: Vancomycin HCL 1,250 MG in NS 250 ML IV SCH (09:00)
--- NOTE | 2024-12-21 17:00 | NUR ---
SHIFT SUMMARY: NO EVENTS OR CHANGES THROUGHOUT THE SHIFT. SHE IS ON IV ANTIBIOTICS AND STERIODS. HER PANNUS WOUND WAS PHOTOGRAPHED AND NEW STARR WERE MADE. IMPROVEMENT OF AFFECTED AREA. PATIENT DENIES PAIN. SHE IS IN BED, CALL LIGHT WITHIN REACH, NO SIGNS OR SYMPTOMS DISTRESSS, CALL LIGHT WITHIN REACH, PLAN OF CARE ONGOING.
[2024-12-21 17:31] VITALS: BP 123/72
[2024-12-21 21:55] VITALS: BP 105/58
[2024-12-22 05:13] LABS: BASOPHILS ABSOLUTE AUTO 0.02 K/mm3 (0.00-0.23); BASOPHILS PERCENT AUTO 0 % (0-2); EOSINOPHILS PERCENT AUTO 0 % (0-6); Hematocrit 29.7 % (33.0-51.0); Hemoglobin 9.5 g/dL (11.5-16.0); IMMATURE GRAN ABSOLUTE AUTO 0.13 K/mm3 (0.00-0.10); IMMATURE GRAN PERCENT AUTO 1 % (0-1); LYMPHOCYTES ABSOLUTE AUTO 0.97 K/mm3 (0.84-5.20); LYMPHOCYTES PERCENT AUTO 8 % (21-46); MONOCYTES ABSOLUTE AUTO 0.41 K/mm3 (0.16-1.47); MONOCYTES PERCENT AUTO 3 % (4-13); Mean Corpuscular HGB 33.3 pg (26.0-34.0); Mean Platelet Volume 10.6 fL (9.1-12.4); NEUTROPHILS ABSOLUTE AUTO 10.58 K/mm3 (1.96-9.15); NEUTROPHILS PERCENT AUTO 87 % (41-73); Platelet Count 218 K/mm3 (150-400); RDW Standard Deviation 46.4 fL (35.1-46.3); Red Blood Cell Count 2.85 M/mm3 (3.80-5.20); White Blood Cell Count 12.11 K/mm3 (4.00-11.30)
[2024-12-22 05:16] LABS: Mean Corpuscular Volume 104 fL (80-100)
[2024-12-22 05:21] VITALS: BP 113/61
[2024-12-22 05:38] LABS: Calcium, Blood 8.6 mg/dL (8.5-10.1); Creatinine, Blood 1.71 mg/dL (0.40-1.00); Potassium, Blood 4.4 mmol/L (3.5-5.5)
--- NOTE | 2024-12-22 06:03 | NUR ---
DIRECTOR CARD SUMMARY PT A/OX4. PT REPORTING SOME DIFFICULTING URINATING. PT STATES SHE HAS TO STRAIN TO EMPTY HER BLADDER BUT DOES FEEL SHE IS ABLE TO EMPTY BLADDER. PT HAS HAD MORE CLEAR/YELLOWISH EXUDATE DRAINING FROM RIGHT PANNICULITIS. PT REPORTS THE AREA TO BE MORE TENDER/PAINFUL. PT IS 1-2PA UP TO [facility]. PT REMAINS ON 4LPM OXYGEN TO MAINTAIN SATURATIONS ABOVE 90%. CALL LIGHT ACCESSIBLE. PT ABLE TO MAKE NEEDS KOWN.
[2024-12-22 07:46] VITALS: BP 115/94
[2024-12-22] MEDS ORDERED: Miconazole Nitrate 2% 85 GM PWD TOP PRN (11:30)
--- NOTE | 2024-12-22 16:34 | NUR ---
SHIFT SUMMARY: NO EVENTS OR CHANGES WITH THE PATIENT THROUGHOUT THE SHIFT. SHE IS NAPPING, CPAP PLACED ON PATIENT, CALL LIGHT WITHIN REACH, NO SIGNS OR SYMPTOMS OF DISTRESS, PLAN OF CARE ONGOING.
[2024-12-22 17:33] VITALS: BP 120/68
[2024-12-22 21:32] VITALS: BP 121/76
--- NOTE | 2024-12-23 02:55 | NUR ---
SHIFT SUMMARY: AOX4. WOUND TO R PANNUS IS RED, EDEMATOUS AND DRAINING SEROUSANGINOUS FLUID HEAVILY. LEFT CALCUM ALGINATE FROM PREVIOUS DRESSING BUT PLACED EXUDRY, HEAVY ABSORBANT ROPE AND AN ABD PAD WITH PAPER TAPE. PT DID COMPLAIN OF SOME PAIN WITH MOVEMENT, MEDICATED PER eMAR. PT LUNG SOUNDS ARE DIMINISHED, REQUIRING 4L TO MAINTAIN SPO2 OF 94%. CONT BIOX IN PLACE. PT CALLS APPROPRIATELY AND ASKS FOR ASSISTANCE WHEN NEEDING TO URINATE. PT DOES NEED 1PA TO STAND PIVOT TO BSC. CALL LIGHT IS WITHIN REACH.
[2024-12-23 08:03] VITALS: BP 100/64
[2024-12-23 09:11] LABS: Creatinine, Blood 1.57 mg/dL (0.40-1.00); Vancomycin, Trough 15.4 ug/mL (5.0-10.0)
[2024-12-23] MEDS ORDERED: Piperacillin/Tazobactam Sod 3.375 GM in NS 100 ML IV SCH (09:38)
[2024-12-23] MEDS ORDERED: NS 250 ML IV SCH (10:00)
[2024-12-23] MEDS ORDERED: Fluconazole 100 MG Tab PO ONE (15:35)
--- NOTE | 2024-12-23 15:56 | NUR ---
no changes in pt status today. pt had no c/o pain sob or chest pain. bandadge on right panis area changes. area marked for infection
[2024-12-23 19:58] VITALS: BP 107/66
[2024-12-24 05:02] VITALS: BP 118/63
[2024-12-24 06:59] LABS: Hematocrit 32.2 % (33.0-51.0); Hemoglobin 10.2 g/dL (11.5-16.0); Mean Corpuscular HGB 33.4 pg (26.0-34.0); Mean Corpuscular HGB Conc 31.7 g/dL (31.5-36.5); Mean Corpuscular Volume 106 fL (80-100); Mean Platelet Volume 10.4 fL (9.1-12.4); Platelet Count 262 K/mm3 (150-400); RDW Coefficient Variation 12.4 % (11.7-14.2); RDW Standard Deviation 48.4 fL (35.1-46.3); Red Blood Cell Count 3.05 M/mm3 (3.80-5.20); White Blood Cell Count 11.78 K/mm3 (4.00-11.30)
[2024-12-24 07:19] LABS: Bun/Creatinine Ratio 23.2 (12.0-20.0); Calcium, Blood 8.4 mg/dL (8.5-10.1); Creatinine, Blood 1.51 mg/dL (0.40-1.00); Potassium, Blood 4.6 mmol/L (3.5-5.5)
[2024-12-24 07:53] VITALS: BP 110/71
[2024-12-24] MEDS ORDERED: PredniSONE 20 MG Tab PO SCH (09:00)
[2024-12-24] MEDS ORDERED: MICO100S TOP (10:52)
[2024-12-24] MEDS ORDERED: VISBIOME 112.51 EACH PO (10:53)
[2024-12-24] MEDS ORDERED: AMOCLA875 PO (10:53)
[2024-12-24] MEDS ORDERED: Prednisone10 MG PO (10:54)
--- NOTE | 2024-12-24 15:15 | NUR ---
DISCHARGED IN OWN POWER WHEELCHAIR WITH NON EMERGENCY TRANSPORT
--- NOTE | 2024-12-24 15:27 | NUR ---
pt d/c and ride provided. dc instructions in hand all pivs removed
== END 2024-12-24 15:26 | disposition home health service (06) | DRG 871 ==
LOC: ER 19:14 → PCU 19:15 → ERHOLD 19:15 → PCU 12-17 10:33 → MEDS 12-18 10:00 → PCU 12-18 10:00 → MEDS 12-20 13:07
PROVIDERS: Emergency Medicine; Internal Medicine; Student in an Organized Health Care Education/Training Program; ADMIT Family Medicine
PROC: 3E03329 Introduction of Other Anti-infective into Peripheral Vein, Percutaneous Approach (ICD-10-PCS; principal; 2024-12-18)
PROC: 5A09357 Assistance with Respiratory Ventilation, Less than 24 Consecutive Hours, Continuous Positive Airway Pressure (ICD-10-PCS; 2024-12-18)
DX: A41.9 Sepsis, unspecified organism (principal); J18.9 Pneumonia, unspecified organism; J96.01 Acute respiratory failure with hypoxia; R65.21 Severe sepsis with septic shock; L03.311 Cellulitis of abdominal wall; N39.0 Urinary tract infection, site not specified; E87.20 Acidosis, unspecified; N17.9 Acute kidney failure, unspecified; L02.211 Cutaneous abscess of abdominal wall; Z68.45 Body mass index [BMI] 70 or greater, adult; E66.01 Morbid (severe) obesity due to excess calories; F41.9 Anxiety disorder, unspecified; J45.909 Unspecified asthma, uncomplicated; E06.3 Autoimmune thyroiditis; M32.9 Systemic lupus erythematosus, unspecified; M79.3 Panniculitis, unspecified; J44.9 Chronic obstructive pulmonary disease, unspecified; M25.9 Joint disorder, unspecified; G43.909 Migraine, unspecified, not intractable, without status migrainosus; G89.29 Other chronic pain; G47.33 Obstructive sleep apnea (adult) (pediatric); E05.00 Thyrotoxicosis with diffuse goiter without thyrotoxic crisis or storm; M79.7 Fibromyalgia; F43.10 Post-traumatic stress disorder, unspecified; F44.81 Dissociative identity disorder; E03.9 Hypothyroidism, unspecified; F51.5 Nightmare disorder; N18.30 Chronic kidney disease, stage 3 unspecified; B96.20 Unspecified Escherichia coli [E. coli] as the cause of diseases classified elsewhere; I48.0 Paroxysmal atrial fibrillation; E78.5 Hyperlipidemia, unspecified; Z85.41 Personal history of malignant neoplasm of cervix uteri; Z86.14 Personal history of Methicillin resistant Staphylococcus aureus infection; Z90.49 Acquired absence of other specified parts of digestive tract; Z90.710 Acquired absence of both cervix and uterus; Z98.890 Other specified postprocedural states; Z88.2 Allergy status to sulfonamides; Z88.5 Allergy status to narcotic agent; Z99.81 Dependence on supplemental oxygen; Z88.8 Allergy status to other drugs, medicaments and biological substances; Z79.899 Other long term (current) drug therapy; Z79.01 Long term (current) use of anticoagulants
CPT/HCPCS: 36415; 71045; 76705; 76770; 80048; 80053; 80069; 80202; 81001; 82565; 83605; 83735; 84100; 85025; 85027; 87040; 87077; 87086; 87147; 87186; 93005; 93010; 94761; 94762; 96365; 96375; 96376; 99285-25; A9270; G0378; J1171; J1885; J1956; J2405; J2543; J2919; J3370; J7030; J7040; J7050; J7120; J7512

== ENCOUNTER 2025-01-12 16:25 | Inpatient (IN) | payer OTHER ==
[~2025-01-12] VITALS: Ht 170.2 cm; Wt 197.0 kg
[~2025-01-12 16:25] MED LIST changes: +Bisoprolol Fuma10 MG PO; +CHOLESTYRAMI239.4 G1 PO; +MICO100S TOP; +Norco 5-325 Ta1 EACH PO; +PRAZ5 PO; +Prednisone10 MG PO; +VISBIOME 112.51 EACH PO
[2025-01-12] MEDS ORDERED: Diltiazem HCl 5 MG / ML 5ML Vial IV ONE ×2 (17:20→19:35)
[2025-01-12] MEDS ORDERED: dilTIAZem HCL 125 MG in Dextrose 5% 100 ML IV SCH (17:20)
[2025-01-12 17:30] LABS: BASOPHILS ABSOLUTE AUTO 0.02 K/mm3 (0.00-0.23); BASOPHILS PERCENT AUTO 0 % (0-2); EOSINOPHILS ABSOLUTE AUTO 0.24 K/mm3 (0.00-0.68); EOSINOPHILS PERCENT AUTO 3 % (0-6); Hematocrit 36.2 % (33.0-51.0); Hemoglobin 11.7 g/dL (11.5-16.0); IMMATURE GRAN ABSOLUTE AUTO 0.02 K/mm3 (0.00-0.10); IMMATURE GRAN PERCENT AUTO 0 % (0-1); LYMPHOCYTES ABSOLUTE AUTO 1.49 K/mm3 (0.84-5.20); LYMPHOCYTES PERCENT AUTO 16 % (21-46); MONOCYTES PERCENT AUTO 7 % (4-13); Mean Corpuscular HGB 33.3 pg (26.0-34.0); Mean Corpuscular HGB Conc 32.3 g/dL (31.5-36.5); Mean Corpuscular Volume 103 fL (80-100); Mean Platelet Volume 10.8 fL (9.1-12.4); NEUTROPHILS ABSOLUTE AUTO 7.14 K/mm3 (1.96-9.15); NEUTROPHILS PERCENT AUTO 74 % (41-73); Platelet Count 178 K/mm3 (150-400); RDW Coefficient Variation 13.1 % (11.7-14.2); RDW Standard Deviation 49.8 fL (35.1-46.3); Red Blood Cell Count 3.51 M/mm3 (3.80-5.20); White Blood Cell Count 9.61 K/mm3 (4.00-11.30)
[2025-01-12 17:49] LABS: Albumin, Blood 3.1 g/dL (3.4-5.0); Albumin/Globulin Ratio 0.8 (0.8-1.8); Bilirubin, Total 0.8 mg/dL (0.1-1.0); Calcium, Blood 9.1 mg/dL (8.5-10.1); Creatinine, Blood 1.25 mg/dL (0.40-1.00); Globulin, Blood 4.1 g/dL (2.2-4.0); Total Protein, Blood 7.2 g/dL (6.4-8.2)
[2025-01-12] MEDS ORDERED: Lactated Ringer's 1,000 ML IV ONE (19:35)
[2025-01-12] MEDS ORDERED: HYDROcodone 5-APAP 325 TAB PO PRN (20:05)
[2025-01-12] MEDS ORDERED: Ondansetron HCl 2 MG / ML 2ML Vial IV PRN (20:10)
[2025-01-12] MEDS ORDERED: Cyclobenzaprine HCl 10 MG Tab PO PRN (20:10)
[2025-01-12] MEDS ORDERED: Acetaminophen 325 MG TABLET PO PRN (20:10)
[2025-01-12 20:45] LABS: Magnesium, Blood 1.7 mg/dL (1.6-2.4)
[2025-01-12] MEDS ORDERED: Prazosin HCL 5 MG Cap PO SCH (21:00)
[2025-01-12] MEDS ORDERED: Gabapentin 300 MG Cap PO SCH (21:00)
[2025-01-12] MEDS ORDERED: ClonazePAM 1 MG Tab PO SCH (21:00)
[2025-01-12] MEDS ORDERED: Divalproex Sodium 500 MG TABCR PO SCH (21:00)
[2025-01-12] MEDS ORDERED: Lactated Ringer's 1,000 ML IV SCH (22:00)
[2025-01-12] MEDS ORDERED: Nystatin 100,000 Unit/GM CREAM 15 GM TOP ONE (22:15)
[2025-01-12 23:45] VITALS: BP 145/93
[2025-01-13] VITALS (7 sets, daily range): BP systolic 102–145; BP diastolic 46–93
--- NOTE | 2025-01-13 03:36 | NUR ---
ASSUMPTION OF CARE REPORT RECIEVED FROM ER NURSE. PT BROUGHT TO [facility]IA [facility]. PT TRANSFERED FROM [facility] TO PCU BED INDEPENDENTLY. SHE IS A&O X4, CALM, COOPERATIVE TO CARE. HR IN THE 110'S-120'S, HR INCREASES TO 130'S WITH EXERTION. PT ON DILT GTT AT 15. SHE REPORTS SOME CHEST DISCOMFORT/PALPATIONS. SBP STABLE. 02 >92%. PT ON 2L VIA NC, PT ON 2L AT BASELINE. PT BROUGHT IN HOME CPAP, RT TO BEDSIDE TO SET IT UP, 2L BLEED IN. [facility] DENY ANY QUESTIONS AT THIS TIME. PT RESTING IN BED. CALL LIGHT IN REACH.
[2025-01-13 03:57] LABS: BASOPHILS ABSOLUTE AUTO 0.02 K/mm3 (0.00-0.23); BASOPHILS PERCENT AUTO 0 % (0-2); EOSINOPHILS ABSOLUTE AUTO 0.18 K/mm3 (0.00-0.68); EOSINOPHILS PERCENT AUTO 2 % (0-6); Hemoglobin 9.9 g/dL (11.5-16.0); IMMATURE GRAN ABSOLUTE AUTO 0.03 K/mm3 (0.00-0.10); IMMATURE GRAN PERCENT AUTO 0 % (0-1); LYMPHOCYTES ABSOLUTE AUTO 1.67 K/mm3 (0.84-5.20); LYMPHOCYTES PERCENT AUTO 19 % (21-46); MONOCYTES ABSOLUTE AUTO 0.63 K/mm3 (0.16-1.47); MONOCYTES PERCENT AUTO 7 % (4-13); Mean Corpuscular HGB 33.1 pg (26.0-34.0); Mean Corpuscular HGB Conc 31.9 g/dL (31.5-36.5); Mean Corpuscular Volume 104 fL (80-100); Mean Platelet Volume 10.3 fL (9.1-12.4); NEUTROPHILS PERCENT AUTO 72 % (41-73); Platelet Count 163 K/mm3 (150-400); RDW Standard Deviation 49.3 fL (35.1-46.3); Red Blood Cell Count 2.99 M/mm3 (3.80-5.20); White Blood Cell Count 9.03 K/mm3 (4.00-11.30)
[2025-01-13 04:33] LABS: Magnesium, Blood 1.7 mg/dL (1.6-2.4)
[2025-01-13 04:36] LABS: Albumin, Blood 2.6 g/dL (3.4-5.0); Albumin/Globulin Ratio 0.8 (0.8-1.8); Bilirubin, Total 0.5 mg/dL (0.1-1.0); Bun/Creatinine Ratio 16.5 (12.0-20.0); Creatinine, Blood 1.33 mg/dL (0.40-1.00); Globulin, Blood 3.3 g/dL (2.2-4.0); Potassium, Blood 3.5 mmol/L (3.5-5.5); Thyroid Stimulating Hormone 4.64 uIU/mL (0.360-4.800); Total Protein, Blood 5.9 g/dL (6.4-8.2)
--- NOTE | 2025-01-13 05:37 | NUR ---
SHIFT SUMMARY PT A&O X4, CALM, COOPERATIVE TO CARE. HR IN THE 110'S-120'S. PT DID HAVE ONE EPISODE WHERE HER HR JUMPED UP TO THE 160'S WHILE GOING TO THE BATHROOM, PT STATED SHE GOT CAUGHT UP ON CORDS AND WAS WORKING HERSELF UP. HR DECREASED TO 110'S AFTER RESTING. PT ON DILT GTT AT 10. SHE REPORTS SOME PALPATIONS, SBP STABLE. O2 >92% ON 2L VIA NC, PT ON 2L AT BASELINE, HOME CPAP AT BEDSIDE. PT RESTING IN BED AT THIS TIME. CALL PARRISH LONG. WILL MONITOR PT AND REPORT TO ONCOMING RN.
[2025-01-13] MEDS ORDERED: Diclofenac Sodium 100 GM TUBE TOP PRN (05:55)
[2025-01-13] MEDS ORDERED: Levothyroxine Sodium 0.1 MG Tab PO SCH (06:00)
[2025-01-13] MEDS ORDERED: Cholestyramine/Aspartame 4 GM Packet PO SCH (08:10)
[2025-01-13] MEDS ORDERED: Atorvastatin 40 MG Tab PO SCH (09:00)
[2025-01-13] MEDS ORDERED: Rivaroxaban 10 MG Tab PO SCH (09:00)
[2025-01-13] MEDS ORDERED: Miconazole Nitrate 2% 85 GM PWD TOP SCH (09:55)
--- NOTE | 2025-01-13 19:28 | NUR ---
SHIFT SUMMARY PATIENT AOX4 ABLE TO MAKE NEEDS KNOWN SHE DENIES CHEST PAIN OR SOB. SHE IS TOLERATING HER MEALS AND IS ABLE TO GET UP TO BEDSIDE COMMODE WITH ASSISTANCE. SHE REMAINED ON DILT GTT AND IT WAS INCREASED TO 10MG TOWARD THE END OF MY SHIFT.
[2025-01-13] MEDS ORDERED: Metoprolol Tartrate 25 MG Tab PO SCH (21:00)
[2025-01-14] VITALS (8 sets, daily range): BP systolic 97–128; BP diastolic 55–78
[2025-01-14 04:45] LABS: Hematocrit 33.2 % (33.0-51.0); Hemoglobin 10.5 g/dL (11.5-16.0); Mean Corpuscular HGB 33.3 pg (26.0-34.0); Mean Corpuscular HGB Conc 31.6 g/dL (31.5-36.5); Mean Corpuscular Volume 105 fL (80-100); Mean Platelet Volume 10.6 fL (9.1-12.4); Platelet Count 186 K/mm3 (150-400); RDW Coefficient Variation 13.1 % (11.7-14.2); Red Blood Cell Count 3.15 M/mm3 (3.80-5.20); White Blood Cell Count 9.14 K/mm3 (4.00-11.30)
[2025-01-14 05:16] LABS: Magnesium, Blood 1.9 mg/dL (1.6-2.4)
[2025-01-14 05:17] LABS: Bun/Creatinine Ratio 16.5 (12.0-20.0); Calcium, Blood 9.4 mg/dL (8.5-10.1); Creatinine, Blood 1.33 mg/dL (0.40-1.00); Phosphorus, Blood 4.3 mg/dL (2.5-4.9); Potassium, Blood 3.7 mmol/L (3.5-5.5)
--- NOTE | 2025-01-14 07:25 | NUR ---
SHIFT SUMMARY: PT IS A&OX4, PLEASANT AND APPRECIATIVE OF HER CARE. VSS, MAP >65, ON 2L NC, WEARS HER CPAP WHILE ASLEEP WITH A 2L BLEED IN. AFIB 90-110'S. DILT GTT TITRATED PER ORDER, OFF AT 0306. PT SLEPT MOST OF THIS SHIFT. C/O PAIN TO HER BACK, BLE AND THE CYST ON HER PANNUS, MEDICATED PER EMAR. PT TOLERATING A HEART HEALTHY DIET. SBA TO BSC. VOIDING ADEQUATE AMOUNTS OF CLEAR, CONCENTRATED URINE. NO BM THIS SHIFT. BED IN LOWEST POSITION, CALL LIGHT WITHIN REACH. CALLS APPROPRIATELY AND IS ABLE TO ADVOCATE NEEDS EFFECTIVELY.
--- NOTE | 2025-01-14 10:53 | NUR ---
MORNING SUMMARY THE PT IS A&OX4, CALLS APPROPRAITELY, AND IS A 1P SBA TO THE BS. ON TELE SHE IS SR/ST 90'S-100'S, BP STABLE. NO CHEST PAIN OR SOB. PT IS ON HER BL OF 2LNC. SHE GOT UP IN THE SHOWER THIS MORNING AND VITALS REMAINED STABLE. PLANNED FOR DISCHARGE TODAY PER DR. SANON, AWAITING D/C ORDERS AT THIS TIME. NO ACUTE EVENTS THIS SHIFT. KNOWN WOUNDS TO LLE AND LEFT LATERAL PANNUS. SITES CLEANED AND ABSORBANT DRESSING PLACED. PANNUS ELEVATED WITH PILLOW. SEE NOTES FOR UPDATES.
--- NOTE | 2025-01-14 11:18 | NUR ---
BLOOD CULTURES CAME BACK POSITIVE. THIS RN NOTIFIED DR. SANON AND DISCHARGE WAS CANCELED. PT WILL NEED TO STAY FOR IV ABX. SHE IS NOT MEDICAL STATUS WITH TELE.
[2025-01-14] MEDS ORDERED: Vancomycin HCL 2,500 MG in NS 500 ML IV SCH (12:00)
[2025-01-14] MEDS ORDERED: Metoprolol Tartrate 25 MG Tab PO ONE (14:55)
--- NOTE | 2025-01-14 15:08 | NUR ---
THE PT WENT TO USE THE BSC THIS AFTERNOON AND HER HR JUMPED TO 140'S. AFTER ABOUT 10 MINUTES RESTING IN BED, HER HR IMPROVED TO 110'S-120'S. THIS RN CALLED DR. SANON AND THE PT'S METOPROLOL TARTRATE WAS INCREASED FROM 12.5MG BID TO 25MG BID. A OT DOSE OF 12.5MG WAS GIVEN. STOOL SOFTENERS WERE ORDERED PER DR. SANON. PT C/O HARD CHAYA WHEN HAVING A BOWEL MOVEMENT. SEE NOTES FOR UPDATES.
--- NOTE | 2025-01-14 18:25 | NUR ---
PT REPORTING FEELING NAUSEATED AND "NOT RIGHT". SHE WAS MEDICATED WITH ZOFRAN WITH IMPROVEMENT. PT'S AT BEDSIDE.
[2025-01-14] MEDS ORDERED: Metoprolol Tartrate 25 MG Tab PO SCH (21:00)
[2025-01-14] MEDS ORDERED: Docusate Sodium 100 MG Cap PO SCH (21:00)
[2025-01-14] MEDS ORDERED: Sennosides 8.6 MG Tab PO SCH (21:00)
--- NOTE | 2025-01-15 01:32 | NUR ---
TRANSFER SUMMARY: PT IS A&OX4, PLEASANT AND APPRECIATIVE OF HER CARE. VSS, MAP >65, ON 2L NC, WEARS HER CPAP WHILE ASLEEP WITH A 2L BLEED IN, T MAX 37.7. AFIB 90'S-110'S. C/O SHI AND PAIN TO HER BACK, BLE AND THE CYST ON HER PANNUS, MEDICATED PER EMAR. PT TOLERATING A HEART HEALTHY DIET. SBA TO BSC. VOIDING ADEQUATE AMOUNTS OF CLEAR, CONCENTRATED URINE. NO BM THIS SHIFT. BED IN LOWEST POSITION, CALL LIGHT WITHIN REACH. REPORT CALLED TO KRISHNA IN SURGICAL UNIT AT 0100. TRANSPORTED PT IN HOSPITAL BED WITH ALL BELONGINGS TO ROOM 208
[2025-01-15 01:37] VITALS: BP 101/57
--- NOTE | 2025-01-15 02:00 | NUR ---
TRANSFER FROM PCU TO SURG PT ARRIVED TO 208 FROM ROOM PCU01 AT APPROXIMATELY 0140. PT AAOX4 AND PLEASANT. VITALS STABLE AND EXECUTIVE VICE PRESIDENT AND CHIEF FINANCIAL OFFICER REPORTED AFIB @ 111 BPM ON ARRIVAL. PT'S DRESSINGS AND ABSORBANT PADS TO R PANUS AREA SATURATED SO ALL DRESSINGS AND PADS REPLACED. PT STATES THEY NEED REPLACED EVERY 4-6 HOURS. PT IS INDEPENDENT TO BSC SO BARIATRIC COMMODE PROVIDED AND PT GIVEN NON SLIP SOCKS. PT DENIES OTHER NEEDS AT THIS TIME. CALL LIGHT IN REACH. WCTM.
[2025-01-15 04:52] VITALS: BP 105/76
[2025-01-15 05:00] LABS: Hematocrit 33.5 % (33.0-51.0); Hemoglobin 10.4 g/dL (11.5-16.0)
[2025-01-15 05:43] LABS: Bun/Creatinine Ratio 14.7 (12.0-20.0); Calcium, Blood 8.9 mg/dL (8.5-10.1); Creatinine, Blood 1.5 mg/dL (0.40-1.00); Magnesium, Blood 1.9 mg/dL (1.6-2.4)
[2025-01-15] MEDS ORDERED: Vancomycin HCL 2,000 MG in NS 500 ML IV SCH (06:00)
--- NOTE | 2025-01-15 06:33 | NUR ---
PT LEFT AMA AT AROUND 0500 PT CALLED AND STATED THAT SHE WANTED TO GO HOME. PT EXPLAINED THAT SHE HAD AN APPOINTMENT TODAY R/T HER PANUS CYST THAT SHE DID NOT WANT TO MISS. ALSO STATED THAT SHE JUST WANTED TO BE HOME. ATTEMPTED TO EXPLAIN RISKS OF LEAVING AMA AND TO AT LEAST WAIT UNTIL THE DAY HOSPITALIST COULD ROUND ON HER THIS MORNING TO SEE IF THEY COULD SPEED UP HER DISCHARGE. PT STATED SHE HAD MADE UP HER MIND BUT WOULD TALK TO HER ON THE PHONE. CORE ASSEMBLY SUPERVISOR LIV ALSO SPOKE WITH PT AND EXPLAINED RISKS OF LEAVING EARLY AND SOME OTHER OPTIONS THAT MIGHT MAKE IT EASIER FOR PT TO STAY. PT STATED SHE HAD ALREADY CALLED HER AND THAT HE WAS COMING TO PICK HER UP EVEN THOUGH HE WAS NOT HAPPY THAT SHE WANTED TO LEAVE THE HOSPITAL EARLY. ARRIVED AND CORE ASSEMBLY SUPERVISOR SPOKE WITH THE PT AND HER BUT PT ULTIMATELY DECIDED TO STILL LEAVE AMA. PT SIGNED AMA FORM AND IV UNHOOKED. PT TAKEN OUT BY HER WITH HER ELECTRIC WHEELCHAIR.
== END 2025-01-15 06:17 | disposition left against medical advice (07) | DRG 309 ==
LOC: ER 16:25 → PCU 16:26 → SURS 01-15 01:48
PROVIDERS: Emergency Medicine; Hospitalist; ADMIT Student in an Organized Health Care Education/Training Program
PROC: 5A09357 Assistance with Respiratory Ventilation, Less than 24 Consecutive Hours, Continuous Positive Airway Pressure (ICD-10-PCS; principal; 2025-01-13)
DX: I48.91 Unspecified atrial fibrillation (principal); E87.20 Acidosis, unspecified; Z68.44 Body mass index [BMI] 60.0-69.9, adult; E66.01 Morbid (severe) obesity due to excess calories; G47.33 Obstructive sleep apnea (adult) (pediatric); J44.89 Other specified chronic obstructive pulmonary disease; F31.9 Bipolar disorder, unspecified; M79.7 Fibromyalgia; M32.9 Systemic lupus erythematosus, unspecified; E06.3 Autoimmune thyroiditis; Z53.29 Procedure and treatment not carried out because of patient's decision for other reasons; E05.00 Thyrotoxicosis with diffuse goiter without thyrotoxic crisis or storm; N18.9 Chronic kidney disease, unspecified; G43.709 Chronic migraine without aura, not intractable, without status migrainosus; G89.29 Other chronic pain; M54.9 Dorsalgia, unspecified; F17.200 Nicotine dependence, unspecified, uncomplicated; F43.10 Post-traumatic stress disorder, unspecified; E78.5 Hyperlipidemia, unspecified; Z85.41 Personal history of malignant neoplasm of cervix uteri; Z86.19 Personal history of other infectious and parasitic diseases; Z86.14 Personal history of Methicillin resistant Staphylococcus aureus infection; Z90.710 Acquired absence of both cervix and uterus; Z90.49 Acquired absence of other specified parts of digestive tract; Z79.01 Long term (current) use of anticoagulants; Z79.51 Long term (current) use of inhaled steroids; Z79.891 Long term (current) use of opiate analgesic; Z79.890 Hormone replacement therapy; Z79.899 Other long term (current) drug therapy; Z88.8 Allergy status to other drugs, medicaments and biological substances
CPT/HCPCS: 36415; 71045; 80048; 80053; 83605; 83735; 83880; 84100; 84443; 84484; 85014; 85018; 85025; 85027; 87040; 87077; 93005; 93010; 94762; 96365; 96366; 96376; 99285-25; A9270; G0378; J2405; J3370; J7040; J7120

== ENCOUNTER → 2025-02-27 | Outpatient (CLI) | payer OTHER ==
[2025-02-27 15:41] LABS: Source, Urine Clean Catch
[2025-02-27 16:07] LABS: Bilirubin, Urine Neg (Neg); Color, Urine Yellow (P-Yellow); Glucose Qualitative, Urine Neg (Neg); Ketones, Urine Neg (Neg); Leukocyte Esterase, Urine 1+ (Neg); Protein, Urine 1+ (Neg); Specific Gravity, Urine 1.010 (1.003-1.022); Urobilinogen, Urine NORM (Normal)
== END | disposition home or self-care (01) ==
LOC: LAB SHORT 13:01 → LAB 13:01
DX: N39.0 Urinary tract infection, site not specified (principal)
CPT/HCPCS: 81001; 87077; 87086; 87186

== ENCOUNTER → 2025-04-02 | Outpatient (CLI) | payer OTHER ==
[2025-04-02 11:25] LABS: Bilirubin, Urine Neg (Neg); Color, Urine Yellow (P-Yellow); Glucose Qualitative, Urine Neg (Neg); Ketones, Urine Neg (Neg); Leukocyte Esterase, Urine 1+ (Neg); Protein, Urine 1+ (Neg); Specific Gravity, Urine 1.015 (1.003-1.022); Urobilinogen, Urine NORM (Normal)
[2025-04-02 11:31] LABS: BASOPHILS ABSOLUTE AUTO 0.02 K/mm3 (0.00-0.23); BASOPHILS PERCENT AUTO 0 % (0-2); EOSINOPHILS ABSOLUTE AUTO 0.10 K/mm3 (0.00-0.68); EOSINOPHILS PERCENT AUTO 2 % (0-6); Hematocrit 36.2 % (33.0-51.0); Hemoglobin 11.7 g/dL (11.5-16.0); IMMATURE GRAN ABSOLUTE AUTO 0.01 K/mm3 (0.00-0.10); IMMATURE GRAN PERCENT AUTO 0 % (0-1); LYMPHOCYTES ABSOLUTE AUTO 2.03 K/mm3 (0.84-5.20); LYMPHOCYTES PERCENT AUTO 30 % (21-46); MONOCYTES ABSOLUTE AUTO 0.52 K/mm3 (0.16-1.47); MONOCYTES PERCENT AUTO 8 % (4-13); Mean Corpuscular HGB Conc 32.3 g/dL (31.5-36.5); Mean Corpuscular Volume 103 fL (80-100); NEUTROPHILS ABSOLUTE AUTO 4.15 K/mm3 (1.96-9.15); NEUTROPHILS PERCENT AUTO 61 % (41-73); NRBC ABSOLUTE 0.00 K/mm3 (0.00-0.02); NRBC Auto 0.0 /100 WBC (0.0-0.2); Platelet Count 209 K/mm3 (150-400); RDW Coefficient Variation 12.3 % (11.7-14.2); RDW Standard Deviation 46.2 fL (35.1-46.3)
== END ==
LOC: LAB 10:00 → LAB SHORT 10:00
DX: M79.3 Panniculitis, unspecified (principal); N39.0 Urinary tract infection, site not specified
CPT/HCPCS: 81001; 85025; 87077; 87086; 87186

== ENCOUNTER 2025-04-04 17:03 | Emergency (ER) | payer OTHER ==
[~2025-04-04] VITALS: Ht 170.2 cm; Wt 189.6 kg
[2025-04-04 17:11] VITALS: BP 133/97
[2025-04-04 17:29] LABS: BASOPHILS ABSOLUTE AUTO 0.02 K/mm3 (0.00-0.23); BASOPHILS PERCENT AUTO 0 % (0-2); EOSINOPHILS ABSOLUTE AUTO 0.12 K/mm3 (0.00-0.68); EOSINOPHILS PERCENT AUTO 2 % (0-6); Hematocrit 38.2 % (33.0-51.0); Hemoglobin 12.4 g/dL (11.5-16.0); IMMATURE GRAN ABSOLUTE AUTO 0.03 K/mm3 (0.00-0.10); IMMATURE GRAN PERCENT AUTO 0 % (0-1); LYMPHOCYTES ABSOLUTE AUTO 1.85 K/mm3 (0.84-5.20); LYMPHOCYTES PERCENT AUTO 26 % (21-46); MONOCYTES ABSOLUTE AUTO 0.47 K/mm3 (0.16-1.47); MONOCYTES PERCENT AUTO 7 % (4-13); Mean Corpuscular HGB Conc 32.5 g/dL (31.5-36.5); Mean Corpuscular Volume 105 fL (80-100); NEUTROPHILS ABSOLUTE AUTO 4.69 K/mm3 (1.96-9.15); NEUTROPHILS PERCENT AUTO 65 % (41-73); NRBC ABSOLUTE 0.00 K/mm3 (0.00-0.02); NRBC Auto 0.0 /100 WBC (0.0-0.2); Platelet Count 190 K/mm3 (150-400); RDW Coefficient Variation 12.0 % (11.7-14.2); RDW Standard Deviation 46.4 fL (35.1-46.3)
[2025-04-04] MEDS ORDERED: Ketorolac Tromethamine 15mg Vial IM ONE (17:45)
[2025-04-04 18:04] LABS: Alanine Aminotransfer (ALT/SGP 13.0 U/L (12-78); Albumin, Blood 3.2 g/dL (3.4-5.0); Albumin/Globulin Ratio 0.8 (0.8-1.8); Anion Gap 8.0 mmol/L (3-11); Aspartate Aminotrans (AST/SGOT 26.0 U/L (12-37); Bilirubin, Total 0.4 mg/dL (0.1-1.0); Blood Urea Nitrogen 18.0 mg/dL (8-24); CO2, Blood 29.0 mmol/L (21-32); Calcium, Blood 9.0 mg/dL (8.5-10.1); Chloride, Blood 105.0 mmol/L (98-108); Creatinine, Blood 0.97 mg/dL (0.40-1.00); Globulin, Blood 3.9 g/dL (2.2-4.0); Glucose, Blood 117.0 mg/dL (70-99); Potassium, Blood 5.0 mmol/L (3.5-5.5); Sodium, Blood 137.0 mmol/L (136-145); Total Protein, Blood 7.1 g/dL (6.4-8.2)
== END 2025-04-04 18:25 | disposition left against medical advice (07) ==
LOC: ER 17:03
PROVIDERS: Student in an Organized Health Care Education/Training Program
DX: R31.9 Hematuria, unspecified (principal); R53.83 Other fatigue; R50.9 Fever, unspecified; Z53.29 Procedure and treatment not carried out because of patient's decision for other reasons
CPT/HCPCS: 36415; 80053; 83690; 85025; 96372; 99282-25; J1885

== ENCOUNTER → 2025-04-05 | Outpatient (CLI) | payer OTHER | END | disposition home or self-care (01) | LOC: LAB SHORT 15:22 → LAB 15:22 | DX: R39.9 Unspecified symptoms and signs involving the genitourinary system (principal) | CPT/HCPCS: 87077; 87086; 87186 ==

== ENCOUNTER → 2025-04-24 | Outpatient (CLI) | payer OTHER | LOC: LAB 13:58 → LAB SHORT 13:58 | DX: R30.0 Dysuria (principal) | CPT/HCPCS: 87077; 87086; 87186 ==

== ENCOUNTER → 2025-06-14 | Outpatient (CLI) | payer OTHER ==
[~2025-06-14] MED LIST changes: +KOURZEQ5 GM TOP
[2025-06-14 11:17] LABS: Source, Urine Clean Catch
[2025-06-14 12:40] LABS: Bilirubin, Urine Neg (Neg); Color, Urine Yellow (P-Yellow); Glucose Qualitative, Urine Neg (Neg); Ketones, Urine 1+ (Neg); Leukocyte Esterase, Urine 2+ (Neg); Protein, Urine 1+ (Neg); Specific Gravity, Urine 1.015 (1.003-1.022); Urobilinogen, Urine NORM (Normal)
[2025-06-14 13:02] LABS: Red Blood Cells, Urine 0-2 /hpf (0-2)
== END | disposition home or self-care (01) ==
LOC: LAB 11:14 → LAB SHORT 11:14
DX: R39.9 Unspecified symptoms and signs involving the genitourinary system (principal)
CPT/HCPCS: 81001; 87077; 87086; 87186

== ENCOUNTER 2025-07-19 01:03 | Observation (INO) | payer OTHER ==
[~2025-07-19] VITALS: Ht 170.2 cm; Wt 228.8 kg
[~2025-07-19 01:03] MED LIST changes: -KOURZEQ5 GM TOP; +METO50 PO; +TRIAMCINOLONE 0.5% TOP
[2025-07-19 01:29] LABS: BASOPHILS ABSOLUTE AUTO 0.01 K/mm3 (0.00-0.23); BASOPHILS PERCENT AUTO 0 % (0-2); EOSINOPHILS ABSOLUTE AUTO 0.09 K/mm3 (0.00-0.68); EOSINOPHILS PERCENT AUTO 1 % (0-6); Hematocrit 36.1 % (33.0-51.0); Hemoglobin 11.3 g/dL (11.5-16.0); IMMATURE GRAN ABSOLUTE AUTO 0.03 K/mm3 (0.00-0.10); IMMATURE GRAN PERCENT AUTO 0 % (0-1); LYMPHOCYTES ABSOLUTE AUTO 1.47 K/mm3 (0.84-5.20); LYMPHOCYTES PERCENT AUTO 22 % (21-46); MONOCYTES ABSOLUTE AUTO 0.41 K/mm3 (0.16-1.47); MONOCYTES PERCENT AUTO 6 % (4-13); Mean Corpuscular HGB Conc 31.3 g/dL (31.5-36.5); Mean Corpuscular Volume 105 fL (80-100); NEUTROPHILS ABSOLUTE AUTO 4.68 K/mm3 (1.96-9.15); NEUTROPHILS PERCENT AUTO 70 % (41-73); NRBC ABSOLUTE 0.00 K/mm3 (0.00-0.02); NRBC Auto 0.0 /100 WBC (0.0-0.2); Platelet Count 189 K/mm3 (150-400); RDW Coefficient Variation 12.8 % (11.7-14.2); RDW Standard Deviation 49.3 fL (35.1-46.3)
[2025-07-19] MEDS ORDERED: HYDROcodone 5-APAP 325 TAB PO ONE (01:35)
[2025-07-19 01:48] LABS: Alanine Aminotransfer (ALT/SGP 11.0 U/L (12-78); Albumin, Blood 2.6 g/dL (3.4-5.0); Albumin/Globulin Ratio 0.7 (0.8-1.8); Anion Gap 15.0 mmol/L (3-11); Aspartate Aminotrans (AST/SGOT 16.0 U/L (12-37); Bilirubin, Total 0.2 mg/dL (0.1-1.0); Blood Urea Nitrogen 17.0 mg/dL (8-24); CO2, Blood 21.0 mmol/L (21-32); Calcium, Blood 8.6 mg/dL (8.5-10.1); Chloride, Blood 106.0 mmol/L (98-108); Creatinine, Blood 0.94 mg/dL (0.40-1.00); Globulin, Blood 3.6 g/dL (2.2-4.0); Glucose, Blood 125.0 mg/dL (70-99); Magnesium, Blood 1.8 mg/dL (1.6-2.4); Potassium, Blood 3.4 mmol/L (3.5-5.5); Sodium, Blood 139.0 mmol/L (136-145); Total Protein, Blood 6.2 g/dL (6.4-8.2)
[2025-07-19 02:18] LABS: Source, Urine Clean Catch
[2025-07-19 02:30] LABS: Bilirubin, Urine Neg (Neg); Glucose Qualitative, Urine Neg (Neg); Ketones, Urine 3+ (Neg); Leukocyte Esterase, Urine 1+ (Neg); Protein, Urine 2+ (Neg); Specific Gravity, Urine 1.015 (1.003-1.022); Urobilinogen, Urine NORM (Normal)
[2025-07-19 02:37] LABS: Color, Urine Yellow (P-Yellow)
[2025-07-19 02:38] LABS: White Blood Cells, Urine 0-2 /hpf (0-5)
[2025-07-19] MEDS ORDERED: HYDROcodone 5-APAP 325 TAB PO PRN (03:45)
[2025-07-19] MEDS ORDERED: Ondansetron HCl 2 MG / ML 2ML Vial IV PRN (03:45)
[2025-07-19] MEDS ORDERED: FLU VACC TS2025-26(6MOS UP)/PF 45 MCG/0.5 ML SYRINGE IM SCH (03:45)
[2025-07-19] MEDS ORDERED: Mag Sulfate 1 GM/D5% 100ML 100 ML IV STA (04:22)
[2025-07-19 05:12] LABS: Thyroid Stimulating Hormone 9.34 uIU/mL (0.360-4.800)
[2025-07-19 05:49] VITALS: BP 106/73
--- NOTE | 2025-07-19 07:19 | NUR ---
ASSUMED CARE AT 0520. A/Ox4, TACHYCARDIC, AFIB RHYTHM, OTHER VSS ON RA. REPORTS 02/14 ACUTE GENERALIZED PAIN AND CHRONIC KNEE PAIN, MANAGED WITH PRN NORCO. PHOTOS IN CHART FOR R PANNUS AND LOW BACK EXCORIATION. SAFETY PRECAUTIONS IN PLACE. CALL LIGHT IN REACH, PT CALLS APPROPRIATELY.
[2025-07-19 07:59] VITALS: BP 86/63
[2025-07-19] MEDS ORDERED: Lactobacil 2-S.Thermo-Bifido 1 1 Cap PO SCH (09:00)
[2025-07-19] MEDS ORDERED: Betamethasone Dip 0.05% Cream 15 gm TOP PRN (09:00)
--- NOTE | 2025-07-19 09:00 | NUR ---
pt laying in bed, gets up to bsc with assist, a/ox4, pleasant and cooperative with care, follows commands well, denies pain at this time, lungs are clear in upper fountain, dim in bases, resp even and unlabored, no cough noted, currently on r/a, hrirr, tele in place running afib per monitor, see strip, may have edema to b/l le, could be body habitus, ppp+2, cap refill <3 sec, vs stable, afebrile, piv to juanjo x3, sites are clear and patent, btx4, abd soft nontender, reports reg bm's and voids without diff, skin has rash under panus, erin stephens, call light in reach.
[2025-07-19] MEDS ORDERED: ALBU90OI INH (09:31)
[2025-07-19] MEDS ORDERED: Albuterol HFA200 ACT/6.7 GM INH INH PRN (09:45)
[2025-07-19 11:19] VITALS: BP 115/79
[2025-07-19] MEDS ORDERED: Synthroid/Levo0.2 MG PO (12:17)
[2025-07-19] MEDS ORDERED: TRIA15CR3 TOP (12:21)
--- NOTE | 2025-07-19 12:39 | NUR ---
Pt has been discharged to home, new medications faxed to [facility], piv removed intact, went over discharge instrucitons with her, she verbalized understanding, left via wheelchair with all her belongings.
[2025-07-19] MEDS ORDERED: Divalproex Sodium 500 MG TABCR PO SCH (21:00)
== END 2025-07-19 13:00 | disposition home or self-care (01) ==
LOC: ER 01:03 → MEDS 01:04
PROVIDERS: Student in an Organized Health Care Education/Training Program; ADMIT Student in an Organized Health Care Education/Training Program
DX: R55 Syncope and collapse (principal); I48.91 Unspecified atrial fibrillation; I95.9 Hypotension, unspecified; J44.9 Chronic obstructive pulmonary disease, unspecified; E87.6 Hypokalemia; F17.210 Nicotine dependence, cigarettes, uncomplicated; Z88.1 Allergy status to other antibiotic agents; Z88.2 Allergy status to sulfonamides; Z88.8 Allergy status to other drugs, medicaments and biological substances; Z79.01 Long term (current) use of anticoagulants
CPT/HCPCS: 51701; 80053; 81001; 83735; 84439; 84443; 84484; 85025; 87077; 87086; 87186; 94762; 96361; 96365; 96366; 99285-25; A9270; G0378; J3475; J7120

== ENCOUNTER 2025-07-30 16:26 | Emergency (ER) | payer OTHER ==
[~2025-07-30] VITALS: Ht 170.2 cm; Wt 190.5 kg
[~2025-07-30 16:26] MED LIST changes: +Synthroid/Levo0.2 MG PO; +TRIA15CR3 TOP
[2025-07-30 17:23] LABS: BASOPHILS ABSOLUTE AUTO 0.03 K/mm3 (0.00-0.23); BASOPHILS PERCENT AUTO 0 % (0-2); EOSINOPHILS ABSOLUTE AUTO 0.06 K/mm3 (0.00-0.68); EOSINOPHILS PERCENT AUTO 1 % (0-6); Hematocrit 36.9 % (33.0-51.0); Hemoglobin 12.0 g/dL (11.5-16.0); IMMATURE GRAN ABSOLUTE AUTO 0.07 K/mm3 (0.00-0.10); IMMATURE GRAN PERCENT AUTO 1 % (0-1); LYMPHOCYTES ABSOLUTE AUTO 1.64 K/mm3 (0.84-5.20); LYMPHOCYTES PERCENT AUTO 23 % (21-46); MONOCYTES ABSOLUTE AUTO 0.60 K/mm3 (0.16-1.47); MONOCYTES PERCENT AUTO 8 % (4-13); Mean Corpuscular HGB Conc 32.5 g/dL (31.5-36.5); Mean Corpuscular Volume 103 fL (80-100); NEUTROPHILS ABSOLUTE AUTO 4.79 K/mm3 (1.96-9.15); NEUTROPHILS PERCENT AUTO 67 % (41-73); NRBC ABSOLUTE 0.00 K/mm3 (0.00-0.02); NRBC Auto 0.0 /100 WBC (0.0-0.2); Platelet Count 217 K/mm3 (150-400); RDW Coefficient Variation 13.1 % (11.7-14.2); RDW Standard Deviation 49.8 fL (35.1-46.3)
[2025-07-30] MEDS ORDERED: LORazepam 2 MG/ML 1ML Injection ONE (17:57)
[2025-07-30 18:00] LABS: Alanine Aminotransfer (ALT/SGP 15.0 U/L (12-78); Albumin, Blood 2.9 g/dL (3.4-5.0); Albumin/Globulin Ratio 0.7 (0.8-1.8); Anion Gap 9.0 mmol/L (3-11); Aspartate Aminotrans (AST/SGOT 26.0 U/L (12-37); Bilirubin, Total 0.6 mg/dL (0.1-1.0); Blood Urea Nitrogen 16.0 mg/dL (8-24); CO2, Blood 28.0 mmol/L (21-32); Calcium, Blood 8.8 mg/dL (8.5-10.1); Chloride, Blood 107.0 mmol/L (98-108); Creatinine, Blood 0.91 mg/dL (0.40-1.00); Globulin, Blood 3.9 g/dL (2.2-4.0); Glucose, Blood 91.0 mg/dL (70-99); Potassium, Blood 4.7 mmol/L (3.5-5.5); Sodium, Blood 139.0 mmol/L (136-145); Total Protein, Blood 6.8 g/dL (6.4-8.2)
[2025-07-30] MEDS ORDERED: Midazolam HCl 1MG / ML 2ML Vial IV ONE (18:00)
[2025-07-30 20:15] VITALS: BP 95/69
== END 2025-07-30 21:10 | disposition home or self-care (01) ==
LOC: ER 16:26
PROVIDERS: Student in an Organized Health Care Education/Training Program
DX: R07.89 Other chest pain (principal); F17.210 Nicotine dependence, cigarettes, uncomplicated; G47.33 Obstructive sleep apnea (adult) (pediatric); Z79.899 Other long term (current) drug therapy; Z88.1 Allergy status to other antibiotic agents; Z88.2 Allergy status to sulfonamides; Z88.8 Allergy status to other drugs, medicaments and biological substances
CPT/HCPCS: 71045; 80053; 83880; 84484; 85025; 93005; 93010; 96374; 99285-25; J2060; J2250